=== PATIENT | female | born 1940 | race Caucasian/White ===

== ENCOUNTER 2018-11-08 07:38 | Inpatient (IN) | payer MEDICARE ==
[~2018-11-08] VITALS: Ht 162.6 cm; Wt 84.8 kg
[2018-11-08] MEDS ORDERED: methylPREDNISolone SOD SUCC PF 125 MG/2 ML VIAL. IV ONE (08:15)
[2018-11-08] MEDS ORDERED: IPRATRPIUM/ALBUTEROL 0.5/2.5MG 3 ML NEBU. NEB ONE (08:15)
--- NOTE | 2018-11-08 08:27 | PHYS DOC ---
Past Medical History Past Medical History: Diverticulosis, High Cholesterol, Hypertension, Hypothyroid Past Surgical History: Other Additional Past Surgical Histo: LEFT SHOULDER SX, CATARATS Alcohol Use: None Drug Use: None Adult General Chief Complaint Chief Complaint: ABDOMINAL PAIN HPI HPI Patient is a 78 year old female presents to the ED complaining of abdominal pain �5 days. Patient states she's had diarrhea for the last 5 days. Describes her pain as cramping. Rates her pain as 6 out of 10. States she's had multiple episodes of diarrhea each day. Associated symptoms include nausea and vomiting. States similar symptoms in the past. No recent travel. Denies fever, chest pain, shortness of breath, back pain, headache, dizziness, blood in stool or dysuria. Review of Systems Review of Systems Constitutional: Denies fever or chills [] Eyes: Denies change in visual acuity, redness, or eye pain [] HENT: Denies nasal congestion or sore throat [] Respiratory: Denies cough or shortness of breath [] Cardiovascular: No additional information not addressed in HPI [] GI: Complains of abdominal pain, nausea/vomiting and diarrhea. Denies bloody stools. : Denies dysuria or hematuria [] Musculoskeletal: Denies back pain or joint pain [] Integument: Denies rash or skin lesions [] Neurologic: Denies headache, focal weakness or sensory changes [] All other systems were reviewed and found to be within normal limits, except as documented in this note. Current Medications Current Medications Current Medications Medications (Trade) Dose Ordered Sig/[place] Start Time Stop Time Status Last Admin Dose Admin Albuterol/ Ipratropium (Duoneb) 3 ml 1X ONCE 11/08/18 08:15 11/08/18 08:30 DC Info (CONTRAST GIVEN -- Rx MONITORING) 1 each PRN DAILY PRN 11/08/18 09:00 11/10/18 08:59 Iohexol (Omnipaque 300 Mg/ml) 60 ml 1X ONCE 11/08/18 09:00 11/08/18 09:01 DC 11/08/18 09:13 60 ML Methylprednisolone Sodium Succinate (SOLU-Medrol 125MG VIAL) 125 mg 1X ONCE 11/08/18 08:15 11/08/18 08:30 DC Sodium Chloride 1,000 ml @ 1,000 mls/hr 1X ONCE 11/08/18 09:00 11/08/18 09:59 DC 11/08/18 09:15 1,000 MLS/HR Allergies Allergies Allergies Coded Allergies Type Severity Reaction Last Updated Verified No Known Drug Allergies 08/13/13 No Physical Exam Physical Exam Constitutional: Well developed, well nourished, no acute distress, non-toxic appearance. [] HENT: Normocephalic, atraumatic Neck: Normal range of motion, no tenderness, supple, no stridor. [] Cardiovascular:Heart rate regular rhythm, no murmur [] Lungs & Thorax: Bilateral breath sounds clear to auscultation [] Abdomen: Bowel sounds normal, soft, mild diffuse abdominal tenderness, no masses, no pulsatile masses. [] Skin: Warm, dry, no erythema, no rash. [] Back: No tenderness, no CVA tenderness. [] Extremities: No tenderness, no cyanosis, no clubbing, ROM intact, no edema. [] Neurologic: Alert and oriented X 3, normal motor function, normal sensory functi on, no focal deficits noted. [] Psychologic: Affect normal, judgement normal, mood normal. [] Current Patient Data Vital Signs Vital Signs Date Time Temp Pulse Resp B/P (MAP) Pulse Ox O2 Delivery O2 Flow Rate FiO2 11/08/18 07:48 97.9 97 20 118/22 (54) 97 Room Air 97.9 Lab Values Laboratory Tests Test 11/08/18 08:05 11/08/18 08:15 Urine Collection Type Void Urine Color Yellow Urine Clarity Clear Urine pH 5.5 Urine Specific [place] 1.020 Urine Protein Negative mg/dL (NEG-TRACE) Urine Glucose (UA) Negative mg/dL (NEG) Urine Ketones (Stick) Negative mg/dL (NEG) Urine Blood Negative (NEG) Urine Nitrite Negative (NEG) Urine Bilirubin Negative (NEG) Urine Urobilinogen Dipstick 0.2 mg/dL (0.2 mg/dL) Urine Leukocyte Esterase Small (NEG) Urine RBC Occ /HPF (0-2) Urine WBC 20-40 /HPF (0-4) Urine Squamous Epithelial Cells Few /LPF Urine Bacteria Mod /HPF (0-FEW) Urine Mucus Slight /LPF White Blood Count 9.1 x10^3/uL (4.0-11.0) Red Blood Count 4.19 x10^6/uL (3.50-5.40) Hemoglobin 13.5 g/dL (12.0-15.5) Hematocrit 38.7 % (36.0-47.0) Mean Corpuscular Volume 92 fL (79-100) Mean Corpuscular Hemoglobin 32 pg (25-35) Mean Corpuscular Hemoglobin Concent 35 g/dL (31-37) Red Cell Distribution Width 13.3 % (11.5-14.5) Platelet Count 186 x10^3/uL (140-400) Neutrophils (%) (Auto) 70 % (31-73) Lymphocytes (%) (Auto) 21 % (24-48) L Monocytes (%) (Auto) 6 % (0-9) Eosinophils (%) (Auto) 2 % (0-3) Basophils (%) (Auto) 1 % (0-3) Neutrophils # (Auto) 6.3 x10^3/uL (1.8-7.7) Lymphocytes # (Auto) 1.9 x10^3/uL (1.0-4.8) Monocytes # (Auto) 0.6 x10^3/uL (0.0-1.1) Eosinophils # (Auto) 0.2 x10^3/uL (0.0-0.7) Basophils # (Auto) 0.1 x10^3/uL (0.0-0.2) Sodium Level 140 mmol/L (136-145) Potassium Level 3.8 mmol/L (3.5-5.1) Chloride Level 103 mmol/L (98-107) Carbon Dioxide Level 27 mmol/L (21-32) Anion Gap 10 (6-14) Blood Urea Nitrogen 17 mg/dL (7-20) Creatinine 1.2 mg/dL (0.6-1.0) H Estimated GFR (Cockcroft-Gault) 43.2 BUN/Creatinine Ratio 14 (6-20) Glucose Level 103 mg/dL (70-99) H Calcium Level 9.3 mg/dL (8.5-10.1) Total Bilirubin 1.1 mg/dL (0.2-1.0) H Aspartate Amino Transferase (AST) 33 U/L (15-37) Alanine Aminotransferase (ALT) 25 U/L (14-59) Alkaline Phosphatase 157 U/L (46-116) H Total Protein 8.1 g/dL (6.4-8.2) Albumin 3.4 g/dL (3.4-5.0) Albumin/Globulin Ratio 0.7 (1.0-1.7) L Lipase 100 U/L (73-393) Laboratory Tests 11/08/18 08:15 Laboratory Tests 11/08/18 08:15 EKG EKG [] Radiology/Procedures Radiology/Procedures []PROCEDURE: CT ABD PELV W/ IV CONTRST ONLY Examination: CT of the abdomen pelvis with IV contrast HISTORY: History of diffuse abdominal pain COMPARISON: 08/13/2013 TECHNIQUE: Axial CT images of the abdomen pelvis were performed with IV contrast. Coronal and sagittal reformats are performed Exposure: One or more of the following individualized dose reduction techniques were utilized for this examination: 1. Automated exposure control 2. Adjustment of the mA and/or kV according to patient size 3. Use of iterative reconstruction technique FINDINGS: Minimal bibasilar lung atelectasis. No evidence of free air identified in the abdomen. The visualized liver, adrenals grossly appears unremarkable. Few calcified granulomas identified in the spleen. Small densities identified in the gallbladder likely gallstones. The visualized pancreas grossly appears unremarkable. The stomach is mildly distended. The small bowel is nondilated. Appendix is normal. Feces and gas noted in the colon. There is moderate inflammatory fat stranding identified in the sigmoid colon region with multiple sigmoid colon colon diverticulosis likely acute diverticulitis of the sigmoid colon. There is focal sigmoid colon wall thickening identified. There is a 7 mm fluid collection identified abutting the wall of the sigmoid colon at the site of diverticulitis probably an intramural abscess. Urinary bladder is mildly distended. Cystic structures identified in the left ovary with the largest measuring 1.8 cm could be a left ovarian cysts or cystic lesions. Urinary bladder is mildly distended. The bilateral kidneys enhance symmetrically. Severe aortic atherosclerosis. Moderate degenerative changes lumbar spine. There is moderate compression changes of T8, T12 vertebral bodies, age indeterminate. IMPRESSION: 1. Moderate inflammatory fat stranding identified about the sigmoid colon likely acute diverticulitis. There is focal thickening of the sigmoid colon wall could be secondary to inflammation. There is a 7 mm fluid collection identified abutting the wall of the sigmoid colon at the site of diverticulitis probably an intramural abscess. 2. Cholelithiasis. 3. Cystic structures left ovary could be left ovarian cysts or cystic lesions. Recommend nonemergent ultrasound pelvis for further evaluation. Course & Med Decision Making Course & Med Decision Making Pertinent Labs and Imaging studies reviewed. (See chart for details) []Patient well-appearing in the ED. Resting comfortably at this time. No fevers. CT shows acute diverticulitis with abscess. Discussed case with hospitalist, Dr. Sierra. Agrees to admission and further management patient. Patient stable for admission. GI and surgery consult placed. Dragon Disclaimer Dragon Disclaimer This electronic medical record was generated, in whole or in part, using a voice recognition dictation system. Departure Departure Impression: Primary Impression: Diverticulitis of intestine with abscess Disposition: ADMITTED INPATIENT Admitting Physician: YURI Condition: STABLE Referrals: FABRICE GENAO MD (PCP) JANELLE ARORA Nov 08, 2018 08:27
[2018-11-08 08:30] LABS: BASO # 0.1 x10^3/uL (0.0-0.2); BASO % 1 % (0-3); EOS # 0.2 x10^3/uL (0.0-0.7); EOS % 2 % (0-3); HEMATOCRIT 38.7 % (36.0-47.0); HEMOGLOBIN 13.5 g/dL (12.0-15.5); LYMPH # 1.9 x10^3/uL (1.0-4.8); LYMPH % 21 % (24-48); MEAN CORPUSCULAR HEMOGLOBIN 32 pg (25-35); MEAN CORPUSCULAR HGB CONC 35 g/dL (31-37); MEAN CORPUSCULAR VOLUME 92 fL (79-100); MONO # 0.6 x10^3/uL (0.0-1.1); MONO % 6 % (0-9); NEUT # 6.3 x10^3/uL (1.8-7.7); NEUT % 70 % (31-73); PLATELET COUNT 186 x10^3/uL (140-400); RED BLOOD COUNT 4.19 x10^6/uL (3.50-5.40); RED CELL DISTRIBUTION WIDTH 13.3 % (11.5-14.5); WHITE BLOOD COUNT 9.1 x10^3/uL (4.0-11.0)
[2018-11-08 08:42] LABS: CALCIUM 9.3 mg/dL (8.5-10.1); CREATININE 1.2 mg/dL (0.6-1.0); GFR 43.2; POTASSIUM 3.8 mmol/L (3.5-5.1)
[2018-11-08 08:47] LABS: ALBUMIN 3.4 g/dL (3.4-5.0); ALBUMIN/GLOBULIN RATIO 0.7 (1.0-1.7); TOTAL BILIRUBIN 1.1 mg/dL (0.2-1.0); TOTAL PROTEIN 8.1 g/dL (6.4-8.2)
[2018-11-08 08:52] LABS: BILIRUBIN,URINE NEGATIVE (NEG); CLARITY,URINE CLEAR; COLOR,URINE YELLOW; NITRITE,URINE NEGATIVE (NEG); PH,URINE 5.5; PROTEIN,URINE NEGATIVE (NEG-TRACE); UROBILINOGEN,URINE 0.2 mg/dL (0.2 mg/dL)
[2018-11-08] MEDS ORDERED: IOHEXOL 300 MG/ML 100ML VIAL. IV ONE (09:00)
[2018-11-08] MEDS ORDERED: IV NORMAL SALINE 1000ML BAG 1,000 ML IV ONE (09:00)
[2018-11-08] MEDS ORDERED: CONTRAST GIVEN. MC PRN (09:00)
[2018-11-08 09:05] LABS: SQUAMOUS EPITHELIAL CELL,UR FEW /LPF; WBC,URINE 20-40 /HPF (0-4)
[2018-11-08 09:06] LABS: BACTERIA,URINE MOD /HPF (0-FEW); RBC,URINE OCC /HPF (0-2)
--- NOTE | 2018-11-08 09:34 | RAD ---
Examination: CT of the abdomen pelvis with IV contrast HISTORY: History of diffuse abdominal pain COMPARISON: 08/13/2013 TECHNIQUE: Axial CT images of the abdomen pelvis were performed with IV contrast. Coronal and sagittal reformats are performed Exposure: One or more of the following individualized dose reduction techniques were utilized for this examination: 1. Automated exposure control 2. Adjustment of the mA and/or kV according to patient size 3. Use of iterative reconstruction technique FINDINGS: Minimal bibasilar lung atelectasis. No evidence of free air identified in the abdomen. The visualized liver, adrenals grossly appears unremarkable. Few calcified granulomas identified in the spleen. Small densities identified in the gallbladder likely gallstones. The visualized pancreas grossly appears unremarkable. The stomach is mildly distended. The small bowel is nondilated. Appendix is normal. Feces and gas noted in the colon. There is moderate inflammatory fat stranding identified in the sigmoid colon region with multiple sigmoid colon colon diverticulosis likely acute diverticulitis of the sigmoid colon. There is focal sigmoid colon wall thickening identified. There is a 7 mm fluid collection identified abutting the wall of the sigmoid colon at the site of diverticulitis probably an intramural abscess. Urinary bladder is mildly distended. Cystic structures identified in the left ovary with the largest measuring 1.8 cm could be a left ovarian cysts or cystic lesions. Urinary bladder is mildly distended. The bilateral kidneys enhance symmetrically. Severe aortic atherosclerosis. Moderate degenerative changes lumbar spine. There is moderate compression changes of T8, T12 vertebral bodies, age indeterminate. IMPRESSION: 1. Moderate inflammatory fat stranding identified about the sigmoid colon likely acute diverticulitis. There is focal thickening of the sigmoid colon wall could be secondary to inflammation. There is a 7 mm fluid collection identified abutting the wall of the sigmoid colon at the site of diverticulitis probably an intramural abscess. 2. Cholelithiasis. 3. Cystic structures left ovary could be left ovarian cysts or cystic lesions. Recommend nonemergent ultrasound pelvis for further evaluation. Electronically signed by: Darrin Saldana MD (11/08/2018 9:31 AM) [email or web address]
--- NOTE | 2018-11-08 09:44 | EKG ---
[facility] [address] [place] [address] Test Date: 2018-11-08 Test Time: 08:28:38 Pat Name: VIRA NAVAS Department: Room: Gender: F Warp Clamper: : 1940 Requested By: JANELLE ARORA Order Number: [id number] Reading MD: Measurements Intervals [place] Rate: 77 P: 62 IA: 142 QRS: 6 QRSD: 88 T: 31 QT: 360 QTc: 409 Interpretive Statements SINUS RHYTHM QRS(T) CONTOUR ABNORMALITY CONSIDER INFERIOR MYOCARDIAL DAMAGE POSSIBLY ABNORMAL ECG No previous ECG available for comparison
[2018-11-08] MEDS ORDERED: PIPERACILLIN/TAZOBACTAM 3.375 GM in IV NORMAL SALINE 50ML 50 ML IV ONE (10:15)
[2018-11-08] MEDS ORDERED: ONDANSETRON PF 4 MG/2 ML VIAL. IV PRN (10:15)
[2018-11-08] MEDS ORDERED: fentaNYL PF VIAL 100 MCG/2 ML VIAL IV PRN (10:15)
[2018-11-08] MEDS ORDERED: ACETAMINOPHEN 325 MG TABLET. PO PRN ×2 (10:15→14:00)
--- NOTE | 2018-11-08 10:48 | PDOC1 ---
History and Physical Date of Admission Date of Admission DATE: 11/08/18 TIME: 10:47 Identification/Chief Complaint Chief Complaint SEEN IN ER , 78 year old female presents to the ED complaining of abdominal pain �5 days. Patient states she's had diarrhea for the last 5 days. Describes her pain as cramping. Rates her pain as 6 out of 10. States she's had multiple episodes of diarrhea each day. Associated symptoms include nausea and vomiting. States similar symptoms in the past. No recent travel. Denies fever, chest pain, shortness of breath, back pain, headache, dizziness, blood in stool or dysuria. Past Medical History Past Medical History Past Medical History Past Medical History: Diverticulosis, High Cholesterol, Hypertension, Hypothyroid Past Surgical History: Other Additional Past Surgical Histo: LEFT SHOULDER SX, CATARATS Alcohol Use: None Drug Use: None family hx htn Cardiovascular: HTN GI: Constipation Family History Family History: Hypertension Social History Smoke: No ALCOHOL: none Drugs: None Current Problem List Problem List Problems Medical Problems: (1) Diverticulitis of intestine with abscess Status: Acute Current Medications Current Medications Current Medications Albuterol/ Ipratropium (Duoneb) 3 ml 1X ONCE NEB ; Start 11/08/18 at 08:15; Stop 11/08/18 at 08:30; Status DC Methylprednisolone Sodium Succinate (SOLU-Medrol 125MG VIAL) 125 mg 1X ONCE IV ; Start 11/08/18 at 08:15; Stop 11/08/18 at 08:30; Status DC Iohexol (Omnipaque 300 Mg/ml) 60 ml 1X ONCE IV Last administered on 11/08/18at 09:13; Start 11/08/18 at 09:00; Stop 11/08/18 at 09:01; Status DC Info (CONTRAST GIVEN -- Rx MONITORING) 1 each PRN DAILY PRN MC SEE COMMENTS; Start 11/08/18 at 09:00; Stop 11/10/18 at 08:59 Sodium Chloride 1,000 ml @ 1,000 mls/hr 1X ONCE IV Last administered on 11/08/18at 09:15; Start 11/08/18 at 09:00; Stop 11/08/18 at 09:59; Status DC Ondansetron HCl (Zofran) 4 mg PRN Q8HRS PRN IV NAUSEA/VOMITING; Start 11/08/18 at 10:15; Stop 11/09/18 at 10:14 Fentanyl Citrate (Fentanyl 2ml Vial) 50 mcg PRN Q1HR PRN IV PAIN; Start 11/08/18 at 10:15; Stop 11/09/18 at 10:14 Acetaminophen (Tylenol) 650 mg PRN Q4HRS PRN PO FEVER; Start 11/08/18 at 10:15; Stop 11/09/18 at 10:14 Piperacillin Sod/ Tazobactam Sod 3.375 gm/Sodium Chloride 50 ml @ 100 mls/hr 1X ONCE IV ; Start 11/08/18 at 10:15; Stop 11/08/18 at 10:44; Status DC Allergies Allergies: Coded Allergies: No Known Drug Allergies (Unverified , 08/13/13) ROS Review of System Review of Systems Review of Systems Constitutional: Denies fever or chills [] Eyes: Denies change in visual acuity, redness, or eye pain [] HENT: Denies nasal congestion or sore throat [] Respiratory: Denies cough or shortness of breath [] Cardiovascular: No additional information not addressed in HPI [] GI: Complains of LLQ abdominal pain, nausea/vomiting and diarrhea. Denies bloody stools. : Denies dysuria or hematuria [] Musculoskeletal: Denies back pain or joint pain [] Integument: Denies rash or skin lesions [] Neurologic: Denies headache, focal weakness or sensory changes [] 14 PT systems were reviewed and found to be within normal limits, except as documented General: YES: Fatigue Respiratory: No: Cough, Hemoptysis, Orthopnea, Pleuritic Pain, Shortness of breath, SOB with excertion, Sputum Changes, Stridor, Tachypnea, Wheezing, Other Cardiovascular: No Chest Pain, No Palpitations, No Orthopnea, No Paroxysmal Noc. Dyspnea, No Edema, No Lt Headedness, No Other Musculoskeletal: Yes Joint Stiffness Skin: Yes Dry Skin Physical Exam Physical Exam Physical Exam Physical Exam Constitutional: Well developed, well nourished, MILD acute distress, non-toxic appearance. [] HENT: Normocephalic, atraumatic Neck: Normal range of motion, no tenderness, supple, no stridor. [] Cardiovascular:Heart rate regular rhythm, no murmur [] Lungs & Thorax: Bilateral breath sounds clear to auscultation [] Abdomen: Bowel sounds normal, soft, mild diffuse abdominal tenderness, no masses, no pulsatile masses. [] Skin: Warm, dry, no erythema, no rash. [] Back: No tenderness, no CVA tenderness. [] Extremities: No tenderness, no cyanosis, no clubbing, ROM intact, no edema. [] Neurologic: Alert and oriented X 3, normal motor function, normal sensory function, no focal deficits noted. [] Psychologic: Affect normal, judgement normal, mood normal. [] General: Alert, Oriented X3, Cooperative, mild distress Lungs: Clear to auscultation, Normal air movement Heart: no gallops Breasts: Not examined Abdomen: No hepatosplenomegaly PELVIC: Examination not indicated Extremities: No cyanosis Neuro: Normal speech, Strength at 5/5 X4 ext, Cranial nerves 3-12 NL Psych/Mental Status: Mental status NL, Mood NL Vitals Vitals Vital Signs Date Time Temp Pulse Resp B/P (MAP) Pulse Ox O2 Delivery O2 Flow Rate FiO2 11/08/18 07:48 97.9 97 20 118/22 (54) 97 Room Air 97.9 Labs Labs Laboratory Tests Test 11/08/18 08:05 11/08/18 08:15 Urine Collection Type Void Urine Color Yellow Urine Clarity Clear Urine pH 5.5 Urine Specific [place] 1.020 Urine Protein Negative mg/dL (NEG-TRACE) Urine Glucose (UA) Negative mg/dL (NEG) Urine Ketones (Stick) Negative mg/dL (NEG) Urine Blood Negative (NEG) Urine Nitrite Negative (NEG) Urine Bilirubin Negative (NEG) Urine Urobilinogen Dipstick 0.2 mg/dL (0.2 mg/dL) Urine Leukocyte Esterase Small (NEG) Urine RBC Occ /HPF (0-2) Urine WBC 20-40 /HPF (0-4) Urine Squamous Epithelial Cells Few /LPF Urine Bacteria Mod /HPF (0-FEW) Urine Mucus Slight /LPF White Blood Count 9.1 x10^3/uL (4.0-11.0) Red Blood Count 4.19 x10^6/uL (3.50-5.40) Hemoglobin 13.5 g/dL (12.0-15.5) Hematocrit 38.7 % (36.0-47.0) Mean Corpuscular Volume 92 fL (79-100) Mean Corpuscular Hemoglobin 32 pg (25-35) Mean Corpuscular Hemoglobin Concent 35 g/dL (31-37) Red Cell Distribution Width 13.3 % (11.5-14.5) Platelet Count 186 x10^3/uL (140-400) Neutrophils (%) (Auto) 70 % (31-73) Lymphocytes (%) (Auto) 21 % (24-48) Monocytes (%) (Auto) 6 % (0-9) Eosinophils (%) (Auto) 2 % (0-3) Basophils (%) (Auto) 1 % (0-3) Neutrophils # (Auto) 6.3 x10^3/uL (1.8-7.7) Lymphocytes # (Auto) 1.9 x10^3/uL (1.0-4.8) Monocytes # (Auto) 0.6 x10^3/uL (0.0-1.1) Eosinophils # (Auto) 0.2 x10^3/uL (0.0-0.7) Basophils # (Auto) 0.1 x10^3/uL (0.0-0.2) Sodium Level 140 mmol/L (136-145) Potassium Level 3.8 mmol/L (3.5-5.1) Chloride Level 103 mmol/L (98-107) Carbon Dioxide Level 27 mmol/L (21-32) Anion Gap 10 (6-14) Blood Urea Nitrogen 17 mg/dL (7-20) Creatinine 1.2 mg/dL (0.6-1.0) Estimated GFR (Cockcroft-Gault) 43.2 BUN/Creatinine Ratio 14 (6-20) Glucose Level 103 mg/dL (70-99) Calcium Level 9.3 mg/dL (8.5-10.1) Total Bilirubin 1.1 mg/dL (0.2-1.0) Aspartate Amino Transf (AST/SGOT) 33 U/L (15-37) Alanine Aminotransferase (ALT/SGPT) 25 U/L (14-59) Alkaline Phosphatase 157 U/L (46-116) Total Protein 8.1 g/dL (6.4-8.2) Albumin 3.4 g/dL (3.4-5.0) Albumin/Globulin Ratio 0.7 (1.0-1.7) Lipase 100 U/L (73-393) Laboratory Tests Test 11/08/18 08:05 11/08/18 08:15 Urine Collection Type Void Urine Color Yellow Urine Clarity Clear Urine pH 5.5 Urine Specific [place] 1.020 Urine Protein Negative mg/dL (NEG-TRACE) Urine Glucose (UA) Negative mg/dL (NEG) Urine Ketones (Stick) Negative mg/dL (NEG) Urine Blood Negative (NEG) Urine Nitrite Negative (NEG) Urine Bilirubin Negative (NEG) Urine Urobilinogen Dipstick 0.2 mg/dL (0.2 mg/dL) Urine Leukocyte Esterase Small (NEG) Urine RBC Occ /HPF (0-2) Urine WBC 20-40 /HPF (0-4) Urine Squamous Epithelial Cells Few /LPF Urine Bacteria Mod /HPF (0-FEW) Urine Mucus Slight /LPF White Blood Count 9.1 x10^3/uL (4.0-11.0) Red Blood Count 4.19 x10^6/uL (3.50-5.40) Hemoglobin 13.5 g/dL (12.0-15.5) Hematocrit 38.7 % (36.0-47.0) Mean Corpuscular Volume 92 fL (79-100) Mean Corpuscular Hemoglobin 32 pg (25-35) Mean Corpuscular Hemoglobin Concent 35 g/dL (31-37) Red Cell Distribution Width 13.3 % (11.5-14.5) Platelet Count 186 x10^3/uL (140-400) Neutrophils (%) (Auto) 70 % (31-73) Lymphocytes (%) (Auto) 21 % (24-48) Monocytes (%) (Auto) 6 % (0-9) Eosinophils (%) (Auto) 2 % (0-3) Basophils (%) (Auto) 1 % (0-3) Neutrophils # (Auto) 6.3 x10^3/uL (1.8-7.7) Lymphocytes # (Auto) 1.9 x10^3/uL (1.0-4.8) Monocytes # (Auto) 0.6 x10^3/uL (0.0-1.1) Eosinophils # (Auto) 0.2 x10^3/uL (0.0-0.7) Basophils # (Auto) 0.1 x10^3/uL (0.0-0.2) Sodium Level 140 mmol/L (136-145) Potassium Level 3.8 mmol/L (3.5-5.1) Chloride Level 103 mmol/L (98-107) Carbon Dioxide Level 27 mmol/L (21-32) Anion Gap 10 (6-14) Blood Urea Nitrogen 17 mg/dL (7-20) Creatinine 1.2 mg/dL (0.6-1.0) Estimated GFR (Cockcroft-Gault) 43.2 BUN/Creatinine Ratio 14 (6-20) Glucose Level 103 mg/dL (70-99) Calcium Level 9.3 mg/dL (8.5-10.1) Total Bilirubin 1.1 mg/dL (0.2-1.0) Aspartate Amino Transf (AST/SGOT) 33 U/L (15-37) Alanine Aminotransferase (ALT/SGPT) 25 U/L (14-59) Alkaline Phosphatase 157 U/L (46-116) Total Protein 8.1 g/dL (6.4-8.2) Albumin 3.4 g/dL (3.4-5.0) Albumin/Globulin Ratio 0.7 (1.0-1.7) Lipase 100 U/L (73-393) Images Images COMPARISON: 08/13/2013 TECHNIQUE: Axial CT images of the abdomen pelvis were performed with IV contrast. Coronal and sagittal reformats are performed Exposure: One or more of the following individualized dose reduction techniques were utilized for this examination: 1. Automated exposure control 2. Adjustment of the mA and/or kV according to patient size 3. Use of iterative reconstruction technique FINDINGS: Minimal bibasilar lung atelectasis. No evidence of free air identified in the abdomen. The visualized liver, adrenals grossly appears unremarkable. Few calcified granulomas identified in the spleen. Small densities identified in the gallbladder likely gallstones. The visualized pancreas grossly appears unremarkable. The stomach is mildly distended. The small bowel is nondilated. Appendix is normal. Feces and gas noted in the colon. There is moderate inflammatory fat stranding identified in the sigmoid colon region with multiple sigmoid colon colon diverticulosis likely acute diverticulitis of the sigmoid colon. There is focal sigmoid colon wall thickening identified. There is a 7 mm fluid collection identified abutting the wall of the sigmoid colon at the site of diverticulitis probably an intramural abscess. Urinary bladder is mildly distended. Cystic structures identified in the left ovary with the largest measuring 1.8 cm could be a left ovarian cysts or cystic lesions. Urinary bladder is mildly distended. The bilateral kidneys enhance symmetrically. Severe aortic atherosclerosis. Moderate degenerative changes lumbar spine. There is moderate compression changes of T8, T12 vertebral bodies, age indeterminate. IMPRESSION: 1. Moderate inflammatory fat stranding identified about the sigmoid colon likely acute diverticulitis. There is focal thickening of the sigmoid colon wall could be secondary to inflammation. There is a 7 mm fluid collection identified abutting the wall of the sigmoid colon at the site of diverticulitis probably an intramural abscess. 2. Cholelithiasis. 3. Cystic structures left ovary could be left ovarian cysts or cystic lesions. Recommend nonemergent ultrasound pelvis for further evaluation. Electronically signed by: Darrin Saldana MD (11/08/2018 9:31 AM) [id number] DICTATED and SIGNED BY: DARRIN SALDANA MD DATE: 11/08/18 0931 VTE Prophylaxis Ordered VTE Prophylaxis Devices: Yes VTE Pharmacological Prophylaxi: Yes Assessment/Plan Assessment/Plan IMPRESSION: 1. Moderate inflammatory fat stranding identified about the sigmoid colon likely acute diverticulitis. There is focal thickening of the sigmoid colon wall could be secondary to inflammation. There is a 7 mm fluid collection identified abutting the wall of the sigmoid colon at the site of diverticulitis probably an intramural abscess. 2. Cholelithiasis. 3. Cystic structures left ovary could be left ovarian cysts or cystic lesions. Recommend nonemergent ultrasound pelvis for further evaluation. 4. OBESITY 5. POSSIBLE UTI PLAN IV ANTIBIOTICS GI CONSULT NPO GEN SURG CONSULT IV FLUID SUPPORT 63 MIN PT EXAM, CHART REVIEW, > 50% OF TIME SPENT WITH EXAM, CHART REVIEW, PT CARE COORDINATION LEONARD MORRIS MD Nov 08, 2018 10:48
--- NOTE | 2018-11-08 12:26 | PDOC2 ---
CARMEN ASCENCIO [employer] 11/08/18 1226: CONSULT Date of Consult Date of Consult DATE: 11/08/18 TIME: 12:21 Reason for Consult Reason for Consult: diverticulitis Referring Physician Referring Physician: ER Identification/Chief Complaint Chief Complaint abdominal pain Source Source: Chart review, Patient History of Present Illness Reason for Visit: LLQ pain and cramps started on Wednesday. This occurred in 2006, she was treated with antibiotics. Reports did have a colonoscopy once resolved, no acute findings per pt. She did have diarrhea Wednesday and Wednesday, no blood in stool. Yesterday took an Imodium and no diarrhea since. Associated nausea and emesis Past Medical History Cardiovascular: HTN, Hyperlipidemia Endocrine: Hypothyroidism Past Surgical History Past Surgical History: No pertinent history Family History Family History: Other (noncontributory to current illness ) Social History No ALCOHOL: rare Drugs: None Lives: with Family Current Problem List Problem List Problems Medical Problems: (1) Diverticulitis of intestine with abscess Status: Acute Current Medications Current Medications Current Medications Albuterol/ Ipratropium (Duoneb) 3 ml 1X ONCE NEB ; Start 11/08/18 at 08:15; Stop 11/08/18 at 08:30; Status DC Methylprednisolone Sodium Succinate (SOLU-Medrol 125MG VIAL) 125 mg 1X ONCE IV ; Start 11/08/18 at 08:15; Stop 11/08/18 at 08:30; Status DC Iohexol (Omnipaque 300 Mg/ml) 60 ml 1X ONCE IV Last administered on 11/08/18at 09:13; Start 11/08/18 at 09:00; Stop 11/08/18 at 09:01; Status DC Info (CONTRAST GIVEN -- Rx MONITORING) 1 each PRN DAILY PRN MC SEE COMMENTS; Start 11/08/18 at 09:00; Stop 11/10/18 at 08:59 Sodium Chloride 1,000 ml @ 1,000 mls/hr 1X ONCE IV Last administered on 11/08/18at 09:15; Start 11/08/18 at 09:00; Stop 11/08/18 at 09:59; Status DC Ondansetron HCl (Zofran) 4 mg PRN Q8HRS PRN IV NAUSEA/VOMITING; Start 11/08/18 at 10:15; Stop 11/09/18 at 10:14 Fentanyl Citrate (Fentanyl 2ml Vial) 50 mcg PRN Q1HR PRN IV PAIN; Start 11/08/18 at 10:15; Stop 11/09/18 at 10:14 Acetaminophen (Tylenol) 650 mg PRN Q4HRS PRN PO FEVER; Start 11/08/18 at 10:15; Stop 11/09/18 at 10:14 Piperacillin Sod/ Tazobactam Sod 3.375 gm/Sodium Chloride 50 ml @ 100 mls/hr 1X ONCE IV Last administered on 11/08/18at 10:53; Start 11/08/18 at 10:15; Stop 11/08/18 at 10:44; Status DC Allergies Allergies: Coded Allergies: No Known Drug Allergies (Unverified , 08/13/13) ROS General: No: Chills, Other (fevers) PSYCHOLOGICAL ROS: No: Anxiety, Depression Eyes: No Blurry vision, No Double vision HEENT: No: Heacaches, Sore Throat Hematological and Lymphatic: No: Bleeding Problems, Blood Clots Respiratory: No: Cough, Shortness of breath Cardiovascular: No Chest Pain, No Palpitations Gastrointestinal: Yes Other (see hpi) Genitourinary: No Dysuria, No Hematuria Musculoskeletal: No Joint Pain, No Muscle Pain Neurological: No Confusion, No Impaired Coord/balance Skin: No Pruritus, No Rash Physical Exam General: Alert, Oriented X3, Cooperative, No acute distress HEENT: PERRLA, Mucous membr. moist/pink Lungs: Clear to auscultation, Normal air movement Heart: Regular rate, Normal S1, Normal S2, No murmurs Abdomen: Soft, Other (ND, mild TTP LLQ, no guarding ) Extremities: No clubbing, No cyanosis Skin: No rashes, No breakdown Neuro: Normal gait, Normal speech Psych/Mental Status: Mental status NL, Mood NL MUSCULOSKELETAL: No deformity, No swelling Vitals VITALS Vital Signs Date Time Temp Pulse Resp B/P (MAP) Pulse Ox O2 Delivery O2 Flow Rate FiO2 11/08/18 11:09 76 18 138/64 (88) 90 Room Air 11/08/18 07:48 97.9 97.9 Labs Labs Laboratory Tests Test 11/08/18 08:05 11/08/18 08:15 Urine Collection Type Void Urine Color Yellow Urine Clarity Clear Urine pH 5.5 Urine Specific [place] 1.020 Urine Protein Negative mg/dL (NEG-TRACE) Urine Glucose (UA) Negative mg/dL (NEG) Urine Ketones (Stick) Negative mg/dL (NEG) Urine Blood Negative (NEG) Urine Nitrite Negative (NEG) Urine Bilirubin Negative (NEG) Urine Urobilinogen Dipstick 0.2 mg/dL (0.2 mg/dL) Urine Leukocyte Esterase Small (NEG) Urine RBC Occ /HPF (0-2) Urine WBC 20-40 /HPF (0-4) Urine Squamous Epithelial Cells Few /LPF Urine Bacteria Mod /HPF (0-FEW) Urine Mucus Slight /LPF White Blood Count 9.1 x10^3/uL (4.0-11.0) Red Blood Count 4.19 x10^6/uL (3.50-5.40) Hemoglobin 13.5 g/dL (12.0-15.5) Hematocrit 38.7 % (36.0-47.0) Mean Corpuscular Volume 92 fL (79-100) Mean Corpuscular Hemoglobin 32 pg (25-35) Mean Corpuscular Hemoglobin Concent 35 g/dL (31-37) Red Cell Distribution Width 13.3 % (11.5-14.5) Platelet Count 186 x10^3/uL (140-400) Neutrophils (%) (Auto) 70 % (31-73) Lymphocytes (%) (Auto) 21 % (24-48) Monocytes (%) (Auto) 6 % (0-9) Eosinophils (%) (Auto) 2 % (0-3) Basophils (%) (Auto) 1 % (0-3) Neutrophils # (Auto) 6.3 x10^3/uL (1.8-7.7) Lymphocytes # (Auto) 1.9 x10^3/uL (1.0-4.8) Monocytes # (Auto) 0.6 x10^3/uL (0.0-1.1) Eosinophils # (Auto) 0.2 x10^3/uL (0.0-0.7) Basophils # (Auto) 0.1 x10^3/uL (0.0-0.2) Sodium Level 140 mmol/L (136-145) Potassium Level 3.8 mmol/L (3.5-5.1) Chloride Level 103 mmol/L (98-107) Carbon Dioxide Level 27 mmol/L (21-32) Anion Gap 10 (6-14) Blood Urea Nitrogen 17 mg/dL (7-20) Creatinine 1.2 mg/dL (0.6-1.0) Estimated GFR (Cockcroft-Gault) 43.2 BUN/Creatinine Ratio 14 (6-20) Glucose Level 103 mg/dL (70-99) Calcium Level 9.3 mg/dL (8.5-10.1) Total Bilirubin 1.1 mg/dL (0.2-1.0) Aspartate Amino Transf (AST/SGOT) 33 U/L (15-37) Alanine Aminotransferase (ALT/SGPT) 25 U/L (14-59) Alkaline Phosphatase 157 U/L (46-116) Total Protein 8.1 g/dL (6.4-8.2) Albumin 3.4 g/dL (3.4-5.0) Albumin/Globulin Ratio 0.7 (1.0-1.7) Lipase 100 U/L (73-393) Laboratory Tests Test 11/08/18 08:05 11/08/18 08:15 Urine Collection Type Void Urine Color Yellow Urine Clarity Clear Urine pH 5.5 Urine Specific [place] 1.020 Urine Protein Negative mg/dL (NEG-TRACE) Urine Glucose (UA) Negative mg/dL (NEG) Urine Ketones (Stick) Negative mg/dL (NEG) Urine Blood Negative (NEG) Urine Nitrite Negative (NEG) Urine Bilirubin Negative (NEG) Urine Urobilinogen Dipstick 0.2 mg/dL (0.2 mg/dL) Urine Leukocyte Esterase Small (NEG) Urine RBC Occ /HPF (0-2) Urine WBC 20-40 /HPF (0-4) Urine Squamous Epithelial Cells Few /LPF Urine Bacteria Mod /HPF (0-FEW) Urine Mucus Slight /LPF White Blood Count 9.1 x10^3/uL (4.0-11.0) Red Blood Count 4.19 x10^6/uL (3.50-5.40) Hemoglobin 13.5 g/dL (12.0-15.5) Hematocrit 38.7 % (36.0-47.0) Mean Corpuscular Volume 92 fL (79-100) Mean Corpuscular Hemoglobin 32 pg (25-35) Mean Corpuscular Hemoglobin Concent 35 g/dL (31-37) Red Cell Distribution Width 13.3 % (11.5-14.5) Platelet Count 186 x10^3/uL (140-400) Neutrophils (%) (Auto) 70 % (31-73) Lymphocytes (%) (Auto) 21 % (24-48) Monocytes (%) (Auto) 6 % (0-9) Eosinophils (%) (Auto) 2 % (0-3) Basophils (%) (Auto) 1 % (0-3) Neutrophils # (Auto) 6.3 x10^3/uL (1.8-7.7) Lymphocytes # (Auto) 1.9 x10^3/uL (1.0-4.8) Monocytes # (Auto) 0.6 x10^3/uL (0.0-1.1) Eosinophils # (Auto) 0.2 x10^3/uL (0.0-0.7) Basophils # (Auto) 0.1 x10^3/uL (0.0-0.2) Sodium Level 140 mmol/L (136-145) Potassium Level 3.8 mmol/L (3.5-5.1) Chloride Level 103 mmol/L (98-107) Carbon Dioxide Level 27 mmol/L (21-32) Anion Gap 10 (6-14) Blood Urea Nitrogen 17 mg/dL (7-20) Creatinine 1.2 mg/dL (0.6-1.0) Estimated GFR (Cockcroft-Gault) 43.2 BUN/Creatinine Ratio 14 (6-20) Glucose Level 103 mg/dL (70-99) Calcium Level 9.3 mg/dL (8.5-10.1) Total Bilirubin 1.1 mg/dL (0.2-1.0) Aspartate Amino Transf (AST/SGOT) 33 U/L (15-37) Alanine Aminotransferase (ALT/SGPT) 25 U/L (14-59) Alkaline Phosphatase 157 U/L (46-116) Total Protein 8.1 g/dL (6.4-8.2) Albumin 3.4 g/dL (3.4-5.0) Albumin/Globulin Ratio 0.7 (1.0-1.7) Lipase 100 U/L (73-393) Assessment/Plan Assessment/Plan diverticulitis with intramural abscess continue abx, bowel rest, hydration(IV), serial labs/exams ANUP GILLESPIE MD 11/08/18 2713: CONSULT Assessment/Plan Assessment/Plan Pt seen and examined. Agree with MsAsuncion Ascencio's note Pt with crampy LLQ abd pain, improved since admission. agree with abx and bowel rest. Hopefully will not required surgical intervention. Thanks for consult! CARMEN ASCENCIO APRN Nov 08, 2018 12:26 ANUP GILLESPIE MD Nov 08, 2018 18:47
--- NOTE | 2018-11-08 13:14 | PDOC2 ---
GI CONSULT Reason For Consult: Diverticulitis w/ abscess HPI: HPI: 78 y/o female admitted through ER. Intermittent cramping pain across lower abd since Wednesday associated w/ intermittent diarrhea since Wednesday. Imodium x 1 helped. H/o diverticulitis in 2006 requiring hospitalization and IV atbx. On CT in ER, sigmoid inflammation w/ 7mm fluid colection abutting wall of sigmoid colon. Was given Zosyn in ER, surgery following. No heartburn/reflux, dysphagia, n/v, chronic abd pain, constipation, hematochezia, or melena. Has lost weight intentionally - fluctuates. Not uncommon for her to have diarrhea. No previous EGD. Has had three colonoscopies - one in [place] and two in [place] - can't remember where but thinks last was >10 years ago. Cholelithiasis noted on CT. No liver, pancreas, or PUD history. Ibuprofen PRN for headaches. PMH: PMH: HTN, HLD, hypothyroidism, diverticulitis left shoulder surgery, cataracts Social History: Smoke: No ALCOHOL: rare Drugs: None ROS: GEN: Denies fevers, chills, sweats HEENT: Denies blurred vision, sore throat CV: Denies chest pain RESP: Denies shortness of air, cough GI: Per HPI : Denies hematuria, dysuria ENDO: +fluctuating weight NEURO: Denies confusion, dizziness MSK: Denies weakness, joint pain/swelling SKIN: Denies jaundice, pruritus Vitals: Vitals: Vital Signs Date Time Temp Pulse Resp B/P (MAP) Pulse Ox O2 Delivery O2 Flow Rate FiO2 11/08/18 11:09 76 18 138/64 (88) 90 Room Air 11/08/18 07:48 97.9 97.9 Labs: Labs: Laboratory Tests Test 11/08/18 08:05 11/08/18 08:15 Urine Collection Type Void Urine Color Yellow Urine Clarity Clear Urine pH 5.5 Urine Specific [place] 1.020 Urine Protein Negative mg/dL (NEG-TRACE) Urine Glucose (UA) Negative mg/dL (NEG) Urine Ketones (Stick) Negative mg/dL (NEG) Urine Blood Negative (NEG) Urine Nitrite Negative (NEG) Urine Bilirubin Negative (NEG) Urine Urobilinogen Dipstick 0.2 mg/dL (0.2 mg/dL) Urine Leukocyte Esterase Small (NEG) Urine RBC Occ /HPF (0-2) Urine WBC 20-40 /HPF (0-4) Urine Squamous Epithelial Cells Few /LPF Urine Bacteria Mod /HPF (0-FEW) Urine Mucus Slight /LPF White Blood Count 9.1 x10^3/uL (4.0-11.0) Red Blood Count 4.19 x10^6/uL (3.50-5.40) Hemoglobin 13.5 g/dL (12.0-15.5) Hematocrit 38.7 % (36.0-47.0) Mean Corpuscular Volume 92 fL (79-100) Mean Corpuscular Hemoglobin 32 pg (25-35) Mean Corpuscular Hemoglobin Concent 35 g/dL (31-37) Red Cell Distribution Width 13.3 % (11.5-14.5) Platelet Count 186 x10^3/uL (140-400) Neutrophils (%) (Auto) 70 % (31-73) Lymphocytes (%) (Auto) 21 % (24-48) Monocytes (%) (Auto) 6 % (0-9) Eosinophils (%) (Auto) 2 % (0-3) Basophils (%) (Auto) 1 % (0-3) Neutrophils # (Auto) 6.3 x10^3/uL (1.8-7.7) Lymphocytes # (Auto) 1.9 x10^3/uL (1.0-4.8) Monocytes # (Auto) 0.6 x10^3/uL (0.0-1.1) Eosinophils # (Auto) 0.2 x10^3/uL (0.0-0.7) Basophils # (Auto) 0.1 x10^3/uL (0.0-0.2) Sodium Level 140 mmol/L (136-145) Potassium Level 3.8 mmol/L (3.5-5.1) Chloride Level 103 mmol/L (98-107) Carbon Dioxide Level 27 mmol/L (21-32) Anion Gap 10 (6-14) Blood Urea Nitrogen 17 mg/dL (7-20) Creatinine 1.2 mg/dL (0.6-1.0) Estimated GFR (Cockcroft-Gault) 43.2 BUN/Creatinine Ratio 14 (6-20) Glucose Level 103 mg/dL (70-99) Calcium Level 9.3 mg/dL (8.5-10.1) Total Bilirubin 1.1 mg/dL (0.2-1.0) Aspartate Amino Transf (AST/SGOT) 33 U/L (15-37) Alanine Aminotransferase (ALT/SGPT) 25 U/L (14-59) Alkaline Phosphatase 157 U/L (46-116) Total Protein 8.1 g/dL (6.4-8.2) Albumin 3.4 g/dL (3.4-5.0) Albumin/Globulin Ratio 0.7 (1.0-1.7) Lipase 100 U/L (73-393) Allergies: Coded Allergies: No Known Drug Allergies (Unverified , 08/13/13) Medications: Current Medications Medications (Trade) Dose Ordered Sig/[place] Route PRN Reason Start Time Stop Time Status Last Admin Dose Admin Iohexol (Omnipaque 300 Mg/ml) 60 ml 1X ONCE IV 11/08/18 09:00 11/08/18 09:01 DC 11/08/18 09:13 Sodium Chloride 1,000 ml @ 1,000 mls/hr 1X ONCE IV 11/08/18 09:00 11/08/18 09:59 DC 11/08/18 09:15 Piperacillin Sod/ Tazobactam Sod 3.375 gm/Sodium Chloride 50 ml @ 100 mls/hr 1X ONCE IV 11/08/18 10:15 11/08/18 10:44 DC 11/08/18 10:53 Imaging: Imaging: CT A/P IMPRESSION: 1. Moderate inflammatory fat stranding identified about the sigmoid colon likely acute diverticulitis. There is focal thickening of the sigmoid colon wall could be secondary to inflammation. There is a 7 mm fluid collection identified abutting the wall of the sigmoid colon at the site of diverticulitis probably an intramural abscess. 2. Cholelithiasis. 3. Cystic structures left ovary could be left ovarian cysts or cystic lesions. Recommend nonemergent ultrasound pelvis for further evaluation. PE: GEN: NAD HEENT: Atraumatic, PERRL LUNGS: CTAB HEART: RRR ABD: NABS, S/ND, LLQ tenderness EXTREMITY: No edema SKIN: No rashes, no jaundice NEURO/PSYCH: A & O �3 A/P: A/P: Lower abd pain, diarrhea, h/o diverticulitis Abnormal CT - sigmoid diverticulitis w/ intramural abscess CRC screen - three colonoscopies in her lifetime, last >10 years ago Cholelithiasis - noted on CT -- Surgery following - plans for bowel rest and antibiotics. IVF and pain control per Dr. Sierra. SAEED LOWE Nov 08, 2018 13:13
[2018-11-08] MEDS: IV NORMAL SALINE 1000ML BAG 1,000 ML IV SCH ×2 (13:50→23:50)
[2018-11-08] MEDS ORDERED: LORazepam 0.5 MG TABLET PO PRN (14:00)
[2018-11-08] MEDS ORDERED: ALBUTEROL SULFATE 2.5 MG/3 ML NEBU. NEB PRN (14:00)
[2018-11-08] MEDS: PIPERACILLIN/TAZOBACTAM 3.375 GM in IV NORMAL SALINE 50ML 50 ML IV SCH (14:00)
[2018-11-08] MEDS ORDERED: 0.9 % SODIUM CHLORIDE 10 ML DISP.SYRIN. IV PRN (14:00)
[2018-11-08] MEDS ORDERED: MAG HYDROX/ALUMINUM HYD/SIMETH 30 ML ORAL.SUSP PO PRN (14:00)
[2018-11-08] MEDS ORDERED: DOCUSATE SODIUM 100 MG CAPSULE. PO PRN (14:00)
[2018-11-08] MEDS ORDERED: cloNIDine HCL 0.1 MG TABLET PO PRN (14:00)
[2018-11-08] MEDS ORDERED: HYDROmorphone 2 MG/ML VIAL IV PRN (14:00)
[2018-11-08 15:00] VITALS: BP 117/52
[2018-11-08 19:00] VITALS: BP 127/54
[2018-11-08] MEDS ORDERED: ATOR40TA59 PO (20:16)
[2018-11-08] MEDS ORDERED: LEVO75TA5 PO (20:16)
[2018-11-08] MEDS ORDERED: LISI10TA2 PO (20:16)
[2018-11-08] MEDS ORDERED: TEMAZEPAM 7.5 MG CAPSULE PO PRN (20:45)
[2018-11-08] MEDS: ATORVASTATIN CALCIUM 40 MG TABLET. PO SCH (21:15)
[2018-11-08 23:00] VITALS: BP 131/62
[2018-11-09] MEDS: PIPERACILLIN/TAZOBACTAM 3.375 GM in IV NORMAL SALINE 50ML 50 ML IV SCH ×5 (00:10→23:55)
[2018-11-09 03:00] VITALS: BP 135/71
[2018-11-09 05:12] LABS: BASO % 1 % (0-3); EOS # 0.2 x10^3/uL (0.0-0.7); EOS % 4 % (0-3); HEMATOCRIT 32.8 % (36.0-47.0); HEMOGLOBIN 11.3 g/dL (12.0-15.5); LYMPH # 1.7 x10^3/uL (1.0-4.8); LYMPH % 27 % (24-48); MEAN CORPUSCULAR HEMOGLOBIN 32 pg (25-35); MEAN CORPUSCULAR HGB CONC 35 g/dL (31-37); MEAN CORPUSCULAR VOLUME 93 fL (79-100); MONO # 0.4 x10^3/uL (0.0-1.1); MONO % 6 % (0-9); NEUT # 3.9 x10^3/uL (1.8-7.7); NEUT % 63 % (31-73); PLATELET COUNT 150 x10^3/uL (140-400); RED BLOOD COUNT 3.53 x10^6/uL (3.50-5.40); RED CELL DISTRIBUTION WIDTH 13.7 % (11.5-14.5); WHITE BLOOD COUNT 6.3 x10^3/uL (4.0-11.0)
[2018-11-09 05:40] LABS: ALBUMIN 2.7 g/dL (3.4-5.0); ALBUMIN/GLOBULIN RATIO 0.7 (1.0-1.7); CALCIUM 8.6 mg/dL (8.5-10.1); GFR 53.3; POTASSIUM 3.7 mmol/L (3.5-5.1); TOTAL BILIRUBIN 1.1 mg/dL (0.2-1.0); TOTAL PROTEIN 6.6 g/dL (6.4-8.2)
[2018-11-09] MEDS: LEVOTHYROXINE 75 MCG TABLET PO SCH (06:14)
[2018-11-09 07:00] VITALS: BP 132/62
--- NOTE | 2018-11-09 08:53 | PDOC ---
PROGRESS NOTES Chief Complaint Chief Complaint Lower abd pain, diarrhea, h/o diverticulitis Abnormal CT - sigmoid diverticulitis w/ intramural abscess CRC screen - three colonoscopies in her lifetime, last >10 years ago Cholelithiasis - noted on CT History of Present Illness History of Present Illness -- Surgery following - cont the antibiotics. small fluid collection may need f/u CT before dc, plan tomorrow unless other opinion Vitals Vitals Vital Signs Date Time Temp Pulse Resp B/P (MAP) Pulse Ox O2 Delivery O2 Flow Rate FiO2 11/09/18 07:00 97.7 69 17 132/62 (85) 96 Room Air 97.7 Physical Exam General: Alert, Oriented X3, Cooperative, mild distress Heart: Regular rate, Normal S1, Normal S2, No murmurs Abdomen: No hepatosplenomegaly Extremities: No cyanosis Skin: No rashes, No breakdown Labs LABS Laboratory Tests Test 11/09/18 05:00 White Blood Count 6.3 x10^3/uL (4.0-11.0) Red Blood Count 3.53 x10^6/uL (3.50-5.40) Hemoglobin 11.3 g/dL (12.0-15.5) Hematocrit 32.8 % (36.0-47.0) Mean Corpuscular Volume 93 fL (79-100) Mean Corpuscular Hemoglobin 32 pg (25-35) Mean Corpuscular Hemoglobin Concent 35 g/dL (31-37) Red Cell Distribution Width 13.7 % (11.5-14.5) Platelet Count 150 x10^3/uL (140-400) Neutrophils (%) (Auto) 63 % (31-73) Lymphocytes (%) (Auto) 27 % (24-48) Monocytes (%) (Auto) 6 % (0-9) Eosinophils (%) (Auto) 4 % (0-3) Basophils (%) (Auto) 1 % (0-3) Neutrophils # (Auto) 3.9 x10^3/uL (1.8-7.7) Lymphocytes # (Auto) 1.7 x10^3/uL (1.0-4.8) Monocytes # (Auto) 0.4 x10^3/uL (0.0-1.1) Eosinophils # (Auto) 0.2 x10^3/uL (0.0-0.7) Basophils # (Auto) 0.0 x10^3/uL (0.0-0.2) Sodium Level 143 mmol/L (136-145) Potassium Level 3.7 mmol/L (3.5-5.1) Chloride Level 108 mmol/L (98-107) Carbon Dioxide Level 25 mmol/L (21-32) Anion Gap 10 (6-14) Blood Urea Nitrogen 12 mg/dL (7-20) Creatinine 1.0 mg/dL (0.6-1.0) Estimated GFR (Cockcroft-Gault) 53.3 BUN/Creatinine Ratio 12 (6-20) Glucose Level 79 mg/dL (70-99) Calcium Level 8.6 mg/dL (8.5-10.1) Total Bilirubin 1.1 mg/dL (0.2-1.0) Aspartate Amino Transf (AST/SGOT) 22 U/L (15-37) Alanine Aminotransferase (ALT/SGPT) 18 U/L (14-59) Alkaline Phosphatase 119 U/L (46-116) Total Protein 6.6 g/dL (6.4-8.2) Albumin 2.7 g/dL (3.4-5.0) Albumin/Globulin Ratio 0.7 (1.0-1.7) Review of Systems Review of Systems still some lower abd pain diarrhea x3 ambulate OK no pain with full liq. Assessment and Plan Assessmemt and Plan Problems Medical Problems: (1) Abdominal pain Status: Acute (2) Cholelithiasis Status: Chronic (3) Diarrhea Status: Acute (4) Diverticulitis of intestine with abscess Status: Acute Comment Review of Relevant I have reviewed the following items corina (where applicable) has been applied. Labs Laboratory Tests Test 11/08/18 08:05 11/08/18 08:15 11/09/18 05:00 Urine Collection Type Void Urine Color Yellow Urine Clarity Clear Urine pH 5.5 Urine Specific [place] 1.020 Urine Protein Negative mg/dL (NEG-TRACE) Urine Glucose (UA) Negative mg/dL (NEG) Urine Ketones (Stick) Negative mg/dL (NEG) Urine Blood Negative (NEG) Urine Nitrite Negative (NEG) Urine Bilirubin Negative (NEG) Urine Urobilinogen Dipstick 0.2 mg/dL (0.2 mg/dL) Urine Leukocyte Esterase Small (NEG) Urine RBC Occ /HPF (0-2) Urine WBC 20-40 /HPF (0-4) Urine Squamous Epithelial Cells Few /LPF Urine Bacteria Mod /HPF (0-FEW) Urine Mucus Slight /LPF White Blood Count 9.1 x10^3/uL (4.0-11.0) 6.3 x10^3/uL (4.0-11.0) Red Blood Count 4.19 x10^6/uL (3.50-5.40) 3.53 x10^6/uL (3.50-5.40) Hemoglobin 13.5 g/dL (12.0-15.5) 11.3 g/dL (12.0-15.5) Hematocrit 38.7 % (36.0-47.0) 32.8 % (36.0-47.0) Mean Corpuscular Volume 92 fL (79-100) 93 fL (79-100) Mean Corpuscular Hemoglobin 32 pg (25-35) 32 pg (25-35) Mean Corpuscular Hemoglobin Concent 35 g/dL (31-37) 35 g/dL (31-37) Red Cell Distribution Width 13.3 % (11.5-14.5) 13.7 % (11.5-14.5) Platelet Count 186 x10^3/uL (140-400) 150 x10^3/uL (140-400) Neutrophils (%) (Auto) 70 % (31-73) 63 % (31-73) Lymphocytes (%) (Auto) 21 % (24-48) 27 % (24-48) Monocytes (%) (Auto) 6 % (0-9) 6 % (0-9) Eosinophils (%) (Auto) 2 % (0-3) 4 % (0-3) Basophils (%) (Auto) 1 % (0-3) 1 % (0-3) Neutrophils # (Auto) 6.3 x10^3/uL (1.8-7.7) 3.9 x10^3/uL (1.8-7.7) Lymphocytes # (Auto) 1.9 x10^3/uL (1.0-4.8) 1.7 x10^3/uL (1.0-4.8) Monocytes # (Auto) 0.6 x10^3/uL (0.0-1.1) 0.4 x10^3/uL (0.0-1.1) Eosinophils # (Auto) 0.2 x10^3/uL (0.0-0.7) 0.2 x10^3/uL (0.0-0.7) Basophils # (Auto) 0.1 x10^3/uL (0.0-0.2) 0.0 x10^3/uL (0.0-0.2) Sodium Level 140 mmol/L (136-145) 143 mmol/L (136-145) Potassium Level 3.8 mmol/L (3.5-5.1) 3.7 mmol/L (3.5-5.1) Chloride Level 103 mmol/L (98-107) 108 mmol/L (98-107) Carbon Dioxide Level 27 mmol/L (21-32) 25 mmol/L (21-32) Anion Gap 10 (6-14) 10 (6-14) Blood Urea Nitrogen 17 mg/dL (7-20) 12 mg/dL (7-20) Creatinine 1.2 mg/dL (0.6-1.0) 1.0 mg/dL (0.6-1.0) Estimated GFR (Cockcroft-Gault) 43.2 53.3 BUN/Creatinine Ratio 14 (6-20) 12 (6-20) Glucose Level 103 mg/dL (70-99) 79 mg/dL (70-99) Calcium Level 9.3 mg/dL (8.5-10.1) 8.6 mg/dL (8.5-10.1) Total Bilirubin 1.1 mg/dL (0.2-1.0) 1.1 mg/dL (0.2-1.0) Aspartate Amino Transf (AST/SGOT) 33 U/L (15-37) 22 U/L (15-37) Alanine Aminotransferase (ALT/SGPT) 25 U/L (14-59) 18 U/L (14-59) Alkaline Phosphatase 157 U/L (46-116) 119 U/L (46-116) Total Protein 8.1 g/dL (6.4-8.2) 6.6 g/dL (6.4-8.2) Albumin 3.4 g/dL (3.4-5.0) 2.7 g/dL (3.4-5.0) Albumin/Globulin Ratio 0.7 (1.0-1.7) 0.7 (1.0-1.7) Lipase 100 U/L (73-393) Laboratory Tests Test 11/09/18 05:00 White Blood Count 6.3 x10^3/uL (4.0-11.0) Red Blood Count 3.53 x10^6/uL (3.50-5.40) Hemoglobin 11.3 g/dL (12.0-15.5) Hematocrit 32.8 % (36.0-47.0) Mean Corpuscular Volume 93 fL (79-100) Mean Corpuscular Hemoglobin 32 pg (25-35) Mean Corpuscular Hemoglobin Concent 35 g/dL (31-37) Red Cell Distribution Width 13.7 % (11.5-14.5) Platelet Count 150 x10^3/uL (140-400) Neutrophils (%) (Auto) 63 % (31-73) Lymphocytes (%) (Auto) 27 % (24-48) Monocytes (%) (Auto) 6 % (0-9) Eosinophils (%) (Auto) 4 % (0-3) Basophils (%) (Auto) 1 % (0-3) Neutrophils # (Auto) 3.9 x10^3/uL (1.8-7.7) Lymphocytes # (Auto) 1.7 x10^3/uL (1.0-4.8) Monocytes # (Auto) 0.4 x10^3/uL (0.0-1.1) Eosinophils # (Auto) 0.2 x10^3/uL (0.0-0.7) Basophils # (Auto) 0.0 x10^3/uL (0.0-0.2) Sodium Level 143 mmol/L (136-145) Potassium Level 3.7 mmol/L (3.5-5.1) Chloride Level 108 mmol/L (98-107) Carbon Dioxide Level 25 mmol/L (21-32) Anion Gap 10 (6-14) Blood Urea Nitrogen 12 mg/dL (7-20) Creatinine 1.0 mg/dL (0.6-1.0) Estimated GFR (Cockcroft-Gault) 53.3 BUN/Creatinine Ratio 12 (6-20) Glucose Level 79 mg/dL (70-99) Calcium Level 8.6 mg/dL (8.5-10.1) Total Bilirubin 1.1 mg/dL (0.2-1.0) Aspartate Amino Transf (AST/SGOT) 22 U/L (15-37) Alanine Aminotransferase (ALT/SGPT) 18 U/L (14-59) Alkaline Phosphatase 119 U/L (46-116) Total Protein 6.6 g/dL (6.4-8.2) Albumin 2.7 g/dL (3.4-5.0) Albumin/Globulin Ratio 0.7 (1.0-1.7) Medications Current Medications Albuterol/ Ipratropium (Duoneb) 3 ml 1X ONCE NEB ; Start 11/08/18 at 08:15; Stop 11/08/18 at 08:30; Status DC Methylprednisolone Sodium Succinate (SOLU-Medrol 125MG VIAL) 125 mg 1X ONCE IV ; Start 11/08/18 at 08:15; Stop 11/08/18 at 08:30; Status DC Iohexol (Omnipaque 300 Mg/ml) 60 ml 1X ONCE IV Last administered on 11/08/18at 09:13; Start 11/08/18 at 09:00; Stop 11/08/18 at 09:01; Status DC Info (CONTRAST GIVEN -- Rx MONITORING) 1 each PRN DAILY PRN MC SEE COMMENTS; Start 11/08/18 at 09:00; Stop 11/10/18 at 08:59 Sodium Chloride 1,000 ml @ 1,000 mls/hr 1X ONCE IV Last administered on 11/08/18at 09:15; Start 11/08/18 at 09:00; Stop 11/08/18 at 09:59; Status DC Ondansetron HCl (Zofran) 4 mg PRN Q8HRS PRN IV NAUSEA/VOMITING; Start 11/08/18 at 10:15; Stop 11/09/18 at 10:14 Fentanyl Citrate (Fentanyl 2ml Vial) 50 mcg PRN Q1HR PRN IV PAIN; Start 11/08/18 at 10:15; Stop 11/09/18 at 10:14 Acetaminophen (Tylenol) 650 mg PRN Q4HRS PRN PO FEVER; Start 11/08/18 at 10:15; Stop 11/08/18 at 20:40; Status DC Piperacillin Sod/ Tazobactam Sod 3.375 gm/Sodium Chloride 50 ml @ 100 mls/hr 1X ONCE IV Last administered on 11/08/18at 10:53; Start 11/08/18 at 10:15; Stop 11/08/18 at 10:44; Status DC Sodium Chloride (Normal Saline Flush) 3 ml QSHIFT PRN IV AFTER MEDS AND BLOOD DRAWS; Start 11/08/18 at 14:00 Sodium Chloride 1,000 ml @ 100 mls/hr Q10H IV Last administered on 11/08/18at 18:47; Start 11/08/18 at 13:50 Acetaminophen (Tylenol) 650 mg PRN Q4HRS PRN PO TEMP OVER 100.4F OR MILD PAIN; Start 11/08/18 at 14:00 Al Hydroxide/Mg Hydroxide (Mylanta Plus Xs) 30 ml PRN DAILY PRN PO HEARTBURN / GAS; Start 11/08/18 at 14:00 Clonidine HCl (Catapres) 0.1 mg PRN Q6HRS PRN PO SBP>160 OR DBP>90; Start 11/08/18 at 14:00 Docusate Sodium (Colace) 100 mg PRN BID PRN PO CONSTIPATION; Start 11/08/18 at 14:00 Albuterol Sulfate (Ventolin Neb Soln) 2.5 mg PRN Q4HRS PRN NEB SHORTNESS OF BREATH; Start 11/08/18 at 14:00 Lorazepam (Ativan) 0.5 mg PRN Q4HRS PRN PO ANXIETY / AGITATION; Start 11/08/18 at 14:00 Hydromorphone HCl (Dilaudid) 1 mg PRN Q4HRS PRN IV SEVERE PAIN 7-10; Start 11/08/18 at 14:00 Enoxaparin Sodium (Lovenox 40mg Syringe) 40 mg DAILY SQ ; Start 11/09/18 at 09:00 Piperacillin Sod/ Tazobactam Sod 3.375 gm/Sodium Chloride 50 ml @ 100 mls/hr Q6HRS IV Last administered on 11/09/18at 06:15; Start 11/08/18 at 14:00 Atorvastatin Calcium (Lipitor) 40 mg HS PO Last administered on 11/08/18at 21:15; Start 11/08/18 at 21:00 Levothyroxine Sodium (Synthroid) 75 mcg DAILY06 PO Last administered on 11/09/18at 06:15; Start 11/09/18 at 06:00 Lisinopril (Prinivil) 10 mg DAILY PO ; Start 11/09/18 at 09:00 Temazepam (Restoril) 7.5 mg PRN QHS PRN PO INSOMNIA; Start 11/08/18 at 20:45 Active Scripts Active Reported Lisinopril 10 Mg Tablet 10 Mg PO DAILY Levothyroxine Sodium 75 Mcg Tablet 75 Mcg PO DAILYAC Atorvastatin Calcium 40 Mg Tablet 40 Mg PO HS Vitals/I & O Vital Sign - Last 24 Hours 11/08/18 11/08/18 11/08/18 11/08/18 09:09 10:09 10:39 11:09 Pulse 70 72 76 Resp 18 18 18 B/P (MAP) 121/58 (79) 126/69 (88) 137/70 (92) 138/64 (88) Pulse Ox 99 98 90 O2 Delivery Room Air Room Air Room Air 11/08/18 11/08/18 11/08/18 11/08/18 15:00 19:00 20:00 20:35 Temp 98.1 97.5 98.1 97.5 Pulse 68 67 Resp 18 18 B/P (MAP) 117/52 (73) 127/54 (78) Pulse Ox 96 96 100 O2 Delivery Room Air Room Air Room Air Room Air 11/08/18 11/09/18 11/09/18 23:00 03:00 07:00 Temp 98.3 97.9 97.7 98.3 97.9 97.7 Pulse 72 71 69 Resp 18 18 17 B/P (MAP) 131/62 (85) 135/71 (92) 132/62 (85) Pulse Ox 98 96 96 O2 Delivery Room Air Room Air Room Air Intake and Output 11/08/18 11/08/18 11/09/18 14:59 22:59 06:59 Intake Total 1050 ml Balance 1050 ml AMMY OTTO MD Nov 09, 2018 08:52
[2018-11-09] MEDS: ENOXAPARIN 40 MG/0.4 ML SYRINGE. SQ SCH (09:00)
[2018-11-09] MEDS: LISINOPRIL 10 MG TABLET PO SCH (09:52)
[2018-11-09] MEDS: IV NORMAL SALINE 1000ML BAG 1,000 ML IV SCH ×2 (09:53→18:15)
--- NOTE | 2018-11-09 10:43 | PDOC ---
Subjective: Subjective: Says had pudding and cream of wheat for breakfast, then had a loose stool. Lower abd pain is better. Objective: Vital Signs: Vital Signs Date Time Temp Pulse Resp B/P (MAP) Pulse Ox O2 Delivery O2 Flow Rate FiO2 11/09/18 09:53 77 128/65 11/09/18 07:00 97.7 17 96 Room Air 97.7 Labs: Laboratory Tests Test 11/09/18 05:00 White Blood Count 6.3 x10^3/uL Red Blood Count 3.53 x10^6/uL Hemoglobin 11.3 g/dL Hematocrit 32.8 % Mean Corpuscular Volume 93 fL Mean Corpuscular Hemoglobin 32 pg Mean Corpuscular Hemoglobin Concent 35 g/dL Red Cell Distribution Width 13.7 % Platelet Count 150 x10^3/uL Neutrophils (%) (Auto) 63 % Lymphocytes (%) (Auto) 27 % Monocytes (%) (Auto) 6 % Eosinophils (%) (Auto) 4 % Basophils (%) (Auto) 1 % Neutrophils # (Auto) 3.9 x10^3/uL Lymphocytes # (Auto) 1.7 x10^3/uL Monocytes # (Auto) 0.4 x10^3/uL Eosinophils # (Auto) 0.2 x10^3/uL Basophils # (Auto) 0.0 x10^3/uL Sodium Level 143 mmol/L Potassium Level 3.7 mmol/L Chloride Level 108 mmol/L Carbon Dioxide Level 25 mmol/L Anion Gap 10 Blood Urea Nitrogen 12 mg/dL Creatinine 1.0 mg/dL Estimated GFR (Cockcroft-Gault) 53.3 BUN/Creatinine Ratio 12 Glucose Level 79 mg/dL Calcium Level 8.6 mg/dL Total Bilirubin 1.1 mg/dL Aspartate Amino Transf (AST/SGOT) 22 U/L Alanine Aminotransferase (ALT/SGPT) 18 U/L Alkaline Phosphatase 119 U/L Total Protein 6.6 g/dL Albumin 2.7 g/dL Albumin/Globulin Ratio 0.7 PE: GEN: NAD - walking from restroom back to bed LUNGS: CTAB HEART: RRR ABD: soft, less LLQ discomfort NEURO/PSYCH: A & O �3 A/P: Sigmoid diverticulitis w/ intramural abscess -- Pain improved, continue antibiotics. SAEED LOWE Nov 09, 2018 10:43
[2018-11-09 11:00] VITALS: BP 116/54
--- NOTE | 2018-11-09 14:26 | PDOC ---
SURGICAL PROGRESS NOTE Subjective Pt reports feeling better, carri PO, no n/V, reports pain improved, passed loose stools Vital Signs Vital Signs Date Time Temp Pulse Resp B/P (MAP) Pulse Ox O2 Delivery O2 Flow Rate FiO2 11/09/18 11:00 97.5 65 17 116/54 (74) 97 Room Air 97.5 I&O Intake and Output 11/09/18 07:00 Intake Total 1050 ml Balance 1050 ml IV Total 1050 ml # Voids 5 General: Alert, Oriented X3, Cooperative, No acute distress Abdomen: Soft, No tenderness Labs Laboratory Tests Test 11/08/18 08:05 11/08/18 08:15 11/09/18 05:00 Urine Collection Type Void Urine Color Yellow Urine Clarity Clear Urine pH 5.5 Urine Specific Spencer 1.020 Urine Protein Negative mg/dL (NEG-TRACE) Urine Glucose (UA) Negative mg/dL (NEG) Urine Ketones (Stick) Negative mg/dL (NEG) Urine Blood Negative (NEG) Urine Nitrite Negative (NEG) Urine Bilirubin Negative (NEG) Urine Urobilinogen Dipstick 0.2 mg/dL (0.2 mg/dL) Urine Leukocyte Esterase Small (NEG) Urine RBC Occ /HPF (0-2) Urine WBC 20-40 /HPF (0-4) Urine Squamous Epithelial Cells Few /LPF Urine Bacteria Mod /HPF (0-FEW) Urine Mucus Slight /LPF White Blood Count 9.1 x10^3/uL (4.0-11.0) 6.3 x10^3/uL (4.0-11.0) Red Blood Count 4.19 x10^6/uL (3.50-5.40) 3.53 x10^6/uL (3.50-5.40) Hemoglobin 13.5 g/dL (12.0-15.5) 11.3 g/dL (12.0-15.5) Hematocrit 38.7 % (36.0-47.0) 32.8 % (36.0-47.0) Mean Corpuscular Volume 92 fL (79-100) 93 fL (79-100) Mean Corpuscular Hemoglobin 32 pg (25-35) 32 pg (25-35) Mean Corpuscular Hemoglobin Concent 35 g/dL (31-37) 35 g/dL (31-37) Red Cell Distribution Width 13.3 % (11.5-14.5) 13.7 % (11.5-14.5) Platelet Count 186 x10^3/uL (140-400) 150 x10^3/uL (140-400) Neutrophils (%) (Auto) 70 % (31-73) 63 % (31-73) Lymphocytes (%) (Auto) 21 % (24-48) 27 % (24-48) Monocytes (%) (Auto) 6 % (0-9) 6 % (0-9) Eosinophils (%) (Auto) 2 % (0-3) 4 % (0-3) Basophils (%) (Auto) 1 % (0-3) 1 % (0-3) Neutrophils # (Auto) 6.3 x10^3/uL (1.8-7.7) 3.9 x10^3/uL (1.8-7.7) Lymphocytes # (Auto) 1.9 x10^3/uL (1.0-4.8) 1.7 x10^3/uL (1.0-4.8) Monocytes # (Auto) 0.6 x10^3/uL (0.0-1.1) 0.4 x10^3/uL (0.0-1.1) Eosinophils # (Auto) 0.2 x10^3/uL (0.0-0.7) 0.2 x10^3/uL (0.0-0.7) Basophils # (Auto) 0.1 x10^3/uL (0.0-0.2) 0.0 x10^3/uL (0.0-0.2) Sodium Level 140 mmol/L (136-145) 143 mmol/L (136-145) Potassium Level 3.8 mmol/L (3.5-5.1) 3.7 mmol/L (3.5-5.1) Chloride Level 103 mmol/L (98-107) 108 mmol/L (98-107) Carbon Dioxide Level 27 mmol/L (21-32) 25 mmol/L (21-32) Anion Gap 10 (6-14) 10 (6-14) Blood Urea Nitrogen 17 mg/dL (7-20) 12 mg/dL (7-20) Creatinine 1.2 mg/dL (0.6-1.0) 1.0 mg/dL (0.6-1.0) Estimated GFR (Cockcroft-Gault) 43.2 53.3 BUN/Creatinine Ratio 14 (6-20) 12 (6-20) Glucose Level 103 mg/dL (70-99) 79 mg/dL (70-99) Calcium Level 9.3 mg/dL (8.5-10.1) 8.6 mg/dL (8.5-10.1) Total Bilirubin 1.1 mg/dL (0.2-1.0) 1.1 mg/dL (0.2-1.0) Aspartate Amino Transf (AST/SGOT) 33 U/L (15-37) 22 U/L (15-37) Alanine Aminotransferase (ALT/SGPT) 25 U/L (14-59) 18 U/L (14-59) Alkaline Phosphatase 157 U/L (46-116) 119 U/L (46-116) Total Protein 8.1 g/dL (6.4-8.2) 6.6 g/dL (6.4-8.2) Albumin 3.4 g/dL (3.4-5.0) 2.7 g/dL (3.4-5.0) Albumin/Globulin Ratio 0.7 (1.0-1.7) 0.7 (1.0-1.7) Lipase 100 U/L (73-393) Laboratory Tests Test 11/09/18 05:00 White Blood Count 6.3 x10^3/uL (4.0-11.0) Red Blood Count 3.53 x10^6/uL (3.50-5.40) Hemoglobin 11.3 g/dL (12.0-15.5) Hematocrit 32.8 % (36.0-47.0) Mean Corpuscular Volume 93 fL (79-100) Mean Corpuscular Hemoglobin 32 pg (25-35) Mean Corpuscular Hemoglobin Concent 35 g/dL (31-37) Red Cell Distribution Width 13.7 % (11.5-14.5) Platelet Count 150 x10^3/uL (140-400) Neutrophils (%) (Auto) 63 % (31-73) Lymphocytes (%) (Auto) 27 % (24-48) Monocytes (%) (Auto) 6 % (0-9) Eosinophils (%) (Auto) 4 % (0-3) Basophils (%) (Auto) 1 % (0-3) Neutrophils # (Auto) 3.9 x10^3/uL (1.8-7.7) Lymphocytes # (Auto) 1.7 x10^3/uL (1.0-4.8) Monocytes # (Auto) 0.4 x10^3/uL (0.0-1.1) Eosinophils # (Auto) 0.2 x10^3/uL (0.0-0.7) Basophils # (Auto) 0.0 x10^3/uL (0.0-0.2) Sodium Level 143 mmol/L (136-145) Potassium Level 3.7 mmol/L (3.5-5.1) Chloride Level 108 mmol/L (98-107) Carbon Dioxide Level 25 mmol/L (21-32) Anion Gap 10 (6-14) Blood Urea Nitrogen 12 mg/dL (7-20) Creatinine 1.0 mg/dL (0.6-1.0) Estimated GFR (Cockcroft-Gault) 53.3 BUN/Creatinine Ratio 12 (6-20) Glucose Level 79 mg/dL (70-99) Calcium Level 8.6 mg/dL (8.5-10.1) Total Bilirubin 1.1 mg/dL (0.2-1.0) Aspartate Amino Transf (AST/SGOT) 22 U/L (15-37) Alanine Aminotransferase (ALT/SGPT) 18 U/L (14-59) Alkaline Phosphatase 119 U/L (46-116) Total Protein 6.6 g/dL (6.4-8.2) Albumin 2.7 g/dL (3.4-5.0) Albumin/Globulin Ratio 0.7 (1.0-1.7) Problem List Problems Medical Problems: (1) Abdominal pain Status: Acute (2) Cholelithiasis Status: Chronic (3) Diarrhea Status: Acute (4) Diverticulitis of intestine with abscess Status: Acute Assessment/Plan diverticulitis, clinically improving cont abx and [facility] no surgical plans. Repeat CT may be helpful, but probably not needed, given clinical improvement. ANUP GILLESPIE MD Nov 09, 2018 14:26
[2018-11-09 15:00] VITALS: BP 141/60
[2018-11-09 19:00] VITALS: BP 153/63
[2018-11-09] MEDS: ATORVASTATIN CALCIUM 40 MG TABLET. PO SCH (20:40)
[2018-11-09] MEDS: LACTOBACILLUS RHAMNOSUS GG 1 CAPSULE. PO SCH (20:40)
[2018-11-09 23:00] VITALS: BP 149/66
[2018-11-10 03:00] VITALS: BP 124/50
[2018-11-10] MEDS: LEVOTHYROXINE 75 MCG TABLET PO SCH (05:04)
[2018-11-10] MEDS: PIPERACILLIN/TAZOBACTAM 3.375 GM in IV NORMAL SALINE 50ML 50 ML IV SCH (05:05)
[2018-11-10] MEDS: IV NORMAL SALINE 1000ML BAG 1,000 ML IV SCH (05:05)
[2018-11-10 07:00] VITALS: BP 161/74
--- NOTE | 2018-11-10 08:11 | NUR ---
SW following pt for dc planning. Chart reviewed. Pt lives at home with family. PT/OT recommends home with assistance. Will continue to follow pending dc needs. Addendum: 11/10/18 at 1135 by JESSICA PORTILLO SW SW following pt. Spoke with pt about home health, pt declined. Pt claims she has enough support at home and does not think she needs HH services. Pt states her son will pick her up around 1300. RN notified.
[2018-11-10] MEDS: ENOXAPARIN 40 MG/0.4 ML SYRINGE. SQ SCH (09:00)
[2018-11-10] MEDS ORDERED: AMOX1TAB61 PO (10:28)
[2018-11-10] MEDS ORDERED: LACT1CAP19 PO (10:28)
--- NOTE | 2018-11-10 10:30 | SNU/HH DC ---
DISCHARGE WITH HOME HEALTH DISCHARGE INFORMATION: Discharge Date: Nov 10, 2018 Final Diagnosis: Problems Medical Problems: (1) Abdominal pain Status: Acute (2) Cholelithiasis Status: Chronic (3) Diarrhea Status: Acute (4) Diverticulitis of intestine with abscess Status: Acute Condition on Discharge: Stable CODE STATUS: Code Status: DNR/DNI HOME HEALTH: Face to Face: I certify this patient is under my care and that I, had a face to face encounter that meets the physician face to face encounter requirements with this patient on 11/10 Medical Complications: Other (diverticulitis) Halfway For: Assess/Skilled Observatio, Medication Management RN For Eval/Treatment: Yes Physical Therapy For: Evalulation/Treatment Pt Meets Homebound Status: Limited distance walking (current gut infection, ), Other: FOLLOW-UP: Follow up with: primary care, as needed TREATMENT/EQUIPMENT ORDERS: Adaptive Equipment Issued: None CERTIFICATION STATEMENT: Certification Statement: Certification Statement: Based on the above finding, I certify that this patient is confined to the home and needs intermittent longterm care, physical therapy and/or speech therapy, or continues to need occupational therapy.~ This patient is under my care, and I have initiated the establishment of the plan of care.~ This patient will be followed by myself or a community physician who will periodically review the plan of care. Home Meds Active Scripts Amoxicillin/Potassium Clav (AUGMENTIN 875-125 TABLET) 1 Each Tablet, 1 TAB PO BID for diverticulitis, #14 TAB Prov:AMMY OTTO MD 11/10/18 Lactobacillus Rhamnosus Gg (CULTURELLE) 1 Each Cap.sprink, 1 CAP PO BID for gut health on antibiotic, #30 CAP Prov:AMMY OTTO MD 11/10/18 Reported Medications Lisinopril (LISINOPRIL) 10 Mg Tablet, 10 MG PO DAILY for FOR HYPERTENSION, #30 TAB 0 Refills 11/08/18 Levothyroxine Sodium (LEVOTHYROXINE SODIUM) 75 Mcg Tablet, 75 MCG PO DAILYAC for THYROID SUPPLEMENT, #30 TAB 0 Refills 11/08/18 Atorvastatin Calcium (ATORVASTATIN CALCIUM) 40 Mg Tablet, 40 MG PO HS for FOR CHOLESTEROL, #30 TAB 0 Refills 11/08/18 AMMY OTTO MD Nov 10, 2018 10:30
--- NOTE | 2018-11-10 10:32 | PDOC3 ---
Discharge Summary Visit Information Date of Admission: Nov 08, 2018 Date of Discharge: Nov 10, 2018 Final Diagnosis Lower abd pain, diarrhea, acute diverticulitis Abnormal CT - sigmoid diverticulitis w/ intramural abscess obese, BMI 32 Cholelithiasis - noted on CT htn lipids hypothyroid, stable Problems Medical Problems: (1) Abdominal pain Status: Acute (2) Cholelithiasis Status: Chronic (3) Diarrhea Status: Acute (4) Diverticulitis of intestine with abscess Status: Acute Brief Hospital Course Allergies Allergies Coded Allergies Type Severity Reaction Last Updated Verified No Known Drug Allergies 08/13/13 No Vital Signs Vital Signs Date Time Temp Pulse Resp B/P (MAP) Pulse Ox O2 Delivery O2 Flow Rate FiO2 11/10/18 07:00 97.6 68 14 161/74 (103) 96 Room Air 97.6 Lab Results Laboratory Tests Test 11/09/18 05:00 11/09/18 14:10 White Blood Count 6.3 x10^3/uL (4.0-11.0) Red Blood Count 3.53 x10^6/uL (3.50-5.40) Hemoglobin 11.3 g/dL (12.0-15.5) Hematocrit 32.8 % (36.0-47.0) Mean Corpuscular Volume 93 fL (79-100) Mean Corpuscular Hemoglobin 32 pg (25-35) Mean Corpuscular Hemoglobin Concent 35 g/dL (31-37) Red Cell Distribution Width 13.7 % (11.5-14.5) Platelet Count 150 x10^3/uL (140-400) Neutrophils (%) (Auto) 63 % (31-73) Lymphocytes (%) (Auto) 27 % (24-48) Monocytes (%) (Auto) 6 % (0-9) Eosinophils (%) (Auto) 4 % (0-3) Basophils (%) (Auto) 1 % (0-3) Neutrophils # (Auto) 3.9 x10^3/uL (1.8-7.7) Lymphocytes # (Auto) 1.7 x10^3/uL (1.0-4.8) Monocytes # (Auto) 0.4 x10^3/uL (0.0-1.1) Eosinophils # (Auto) 0.2 x10^3/uL (0.0-0.7) Basophils # (Auto) 0.0 x10^3/uL (0.0-0.2) Sodium Level 143 mmol/L (136-145) Potassium Level 3.7 mmol/L (3.5-5.1) Chloride Level 108 mmol/L (98-107) Carbon Dioxide Level 25 mmol/L (21-32) Anion Gap 10 (6-14) Blood Urea Nitrogen 12 mg/dL (7-20) Creatinine 1.0 mg/dL (0.6-1.0) Estimated GFR (Cockcroft-Gault) 53.3 BUN/Creatinine Ratio 12 (6-20) Glucose Level 79 mg/dL (70-99) Calcium Level 8.6 mg/dL (8.5-10.1) Total Bilirubin 1.1 mg/dL (0.2-1.0) Aspartate Amino Transf (AST/SGOT) 22 U/L (15-37) Alanine Aminotransferase (ALT/SGPT) 18 U/L (14-59) Alkaline Phosphatase 119 U/L (46-116) Total Protein 6.6 g/dL (6.4-8.2) Albumin 2.7 g/dL (3.4-5.0) Albumin/Globulin Ratio 0.7 (1.0-1.7) Clostridium difficile Toxin B Gene Negative (Negative) Laboratory Tests Test 11/09/18 14:10 Clostridium difficile Toxin B Gene Negative (Negative) Brief Hospital Course Ms. Emery is a 78 old [sex] who presented with [ ] Discharge Information Condition at Discharge: Improved Follow Up: Weeks Disposition/Orders: D/C to Home w/ HH Scheduled Amoxicillin/Potassium Clav (Augmentin 875-125 Tablet) 1 Each Tablet, 1 TAB PO BID for diverticulitis, #14 Prescribed by: AMMY OTTO on 11/10/18 1028 Atorvastatin Calcium (Atorvastatin Calcium) 40 Mg Tablet, 40 MG PO HS for FOR CHOLESTEROL, #30 Ref 0 (Reported) Entered as Reported by: KEZIA MILES RN on 11/08/182015 Last Action: Continued on 11/08/182037 by ELIZABETH GAGNON Lactobacillus Rhamnosus Gg (Culturelle) 1 Each Cap.sprink, 1 CAP PO BID for gut health on antibiotic, #30 Prescribed by: AMMY OTTO on 11/10/18 1028 Levothyroxine Sodium (Levothyroxine Sodium) 75 Mcg Tablet, 75 MCG PO DAILYAC for THYROID SUPPLEMENT, #30 Ref 0 (Reported) Entered as Reported by: KEZIA MILES RN on 11/08/182015 Last Action: Continued on 11/08/182037 by ELIZABETH GAGNON Lisinopril (Lisinopril) 10 Mg Tablet, 10 MG PO DAILY for FOR HYPERTENSION, #30 R ef 0 (Reported) Entered as Reported by: KEZIA MILES RN on 11/08/182015 Last Action: Continued on 11/08/182037 by ELIZABETH GAGNON Patient Instructions Patient Instructions > 30 min' face to face AMMY Ayoub MD Nov 10, 2018 10:31
--- NOTE | 2018-11-10 10:34 | PDOC ---
Subjective: Subjective: Doing better - pain is less and intermittent - wants to eat more, had clears this morning. Objective: Objective: Reviewed chart - surgery recs to [facility] yesterday. Vital Signs: Vital Signs Date Time Temp Pulse Resp B/P (MAP) Pulse Ox O2 Delivery O2 Flow Rate FiO2 11/10/18 07:00 97.6 68 14 161/74 (103) 96 Room Air 97.6 Labs: Laboratory Tests Test 11/09/18 14:10 Clostridium difficile Toxin B Gene Negative PE: GEN: NAD LUNGS: CTAB HEART: RRR ABD: S/ND/NT NEURO/PSYCH: A & O �3 A/P: Sigmoid diverticulitis w/ intramural abscess -- Improving - [facility] - d/w RN - ?SAEED Hall Nov 10, 2018 10:34
[2018-11-10] MEDS: LACTOBACILLUS RHAMNOSUS GG 1 CAPSULE. PO SCH (10:46)
[2018-11-10] MEDS: LISINOPRIL 10 MG TABLET PO SCH (10:47)
[2018-11-10 11:00] VITALS: BP 155/69
--- NOTE | 2018-11-10 11:20 | PDOC ---
SURGICAL PROGRESS NOTE Subjective no pain no n/v tolerating full liquids Vital Signs Vital Signs Date Time Temp Pulse Resp B/P (MAP) Pulse Ox O2 Delivery O2 Flow Rate FiO2 11/10/18 10:47 68 161/74 11/10/18 07:00 97.6 14 96 Room Air 97.6 I&O Intake and Output 11/10/18 07:00 Intake Total 2800 ml Balance 2800 ml Intake Oral 2800 ml # Voids 5 General: Alert, Oriented X3, Cooperative, No acute distress Abdomen: Normal bowel sounds, Soft, No tenderness, No hepatosplenomegaly Labs Laboratory Tests Test 11/09/18 05:00 11/09/18 14:10 White Blood Count 6.3 x10^3/uL (4.0-11.0) Red Blood Count 3.53 x10^6/uL (3.50-5.40) Hemoglobin 11.3 g/dL (12.0-15.5) Hematocrit 32.8 % (36.0-47.0) Mean Corpuscular Volume 93 fL (79-100) Mean Corpuscular Hemoglobin 32 pg (25-35) Mean Corpuscular Hemoglobin Concent 35 g/dL (31-37) Red Cell Distribution Width 13.7 % (11.5-14.5) Platelet Count 150 x10^3/uL (140-400) Neutrophils (%) (Auto) 63 % (31-73) Lymphocytes (%) (Auto) 27 % (24-48) Monocytes (%) (Auto) 6 % (0-9) Eosinophils (%) (Auto) 4 % (0-3) Basophils (%) (Auto) 1 % (0-3) Neutrophils # (Auto) 3.9 x10^3/uL (1.8-7.7) Lymphocytes # (Auto) 1.7 x10^3/uL (1.0-4.8) Monocytes # (Auto) 0.4 x10^3/uL (0.0-1.1) Eosinophils # (Auto) 0.2 x10^3/uL (0.0-0.7) Basophils # (Auto) 0.0 x10^3/uL (0.0-0.2) Sodium Level 143 mmol/L (136-145) Potassium Level 3.7 mmol/L (3.5-5.1) Chloride Level 108 mmol/L (98-107) Carbon Dioxide Level 25 mmol/L (21-32) Anion Gap 10 (6-14) Blood Urea Nitrogen 12 mg/dL (7-20) Creatinine 1.0 mg/dL (0.6-1.0) Estimated GFR (Cockcroft-Gault) 53.3 BUN/Creatinine Ratio 12 (6-20) Glucose Level 79 mg/dL (70-99) Calcium Level 8.6 mg/dL (8.5-10.1) Total Bilirubin 1.1 mg/dL (0.2-1.0) Aspartate Amino Transf (AST/SGOT) 22 U/L (15-37) Alanine Aminotransferase (ALT/SGPT) 18 U/L (14-59) Alkaline Phosphatase 119 U/L (46-116) Total Protein 6.6 g/dL (6.4-8.2) Albumin 2.7 g/dL (3.4-5.0) Albumin/Globulin Ratio 0.7 (1.0-1.7) Clostridium difficile Toxin B Gene Negative (Negative) Laboratory Tests Test 11/09/18 14:10 Clostridium difficile Toxin B Gene Negative (Negative) Problem List Problems Medical Problems: (1) Abdominal pain Status: Acute (2) Cholelithiasis Status: Chronic (3) Diarrhea Status: Acute (4) Diverticulitis of intestine with abscess Status: Acute Assessment/Plan improved continue abx CARMEN ASCENCIO APRN Nov 10, 2018 11:20
== END 2018-11-10 13:22 | disposition home or self-care (01) | DRG 392 ==
LOC: ER 07:38 → 5 NORTH 10:01
PROVIDERS: ADMIT Family Medicine; ATTEND Family Medicine
DX: K57.20 Diverticulitis of large intestine with perforation and abscess without bleeding (principal); E03.9 Hypothyroidism, unspecified; E66.9 Obesity, unspecified; E78.00 Pure hypercholesterolemia, unspecified; E78.5 Hyperlipidemia, unspecified; I10 Essential (primary) hypertension; K80.20 Calculus of gallbladder without cholecystitis without obstruction; Z68.32 Body mass index [BMI] 32.0-32.9, adult; Z82.49 Family history of ischemic heart disease and other diseases of the circulatory system
CPT/HCPCS: 36415; 74177; 80053; 81001; 83690; 85025; 87040; 87045; 87493; 93005; 96361; 96365; J2543; J7030; Q9967; 97530; 99285-25; G0378

== ENCOUNTER 2021-01-24 01:17 | Emergency (ER) | payer MEDICARE ==
[~2021-01-24] VITALS: Ht 160 cm; Wt 82.7 kg
[~2021-01-24 01:17] MED LIST: AMOX1TAB61 PO; ATOR40TA59 PO; LACT1CAP19 PO; LEVO75TA5 PO; LISI10TA16 PO
[2021-01-24 02:08] VITALS: BP 133/67
[2021-01-24] MEDS ORDERED: HYDROcodone/APAP 5/325MG 1 TAB TABLET PO ONE (02:15)
[2021-01-24] MEDS ORDERED: HYDR-2761 PO (03:48)
--- NOTE | 2021-01-24 03:49 | PHYS DOC ---
Past Medical History Past Medical History: Diverticulosis, High Cholesterol, Hypertension, Hyp othyroid Past Surgical History: Other Additional Past Surgical Histo: LEFT SHOULDER SX, CATARATS Smoking Status: Never Smoker Alcohol Use: Rarely Drug Use: None General Adult EDM: Chief Complaint: FOOT INJURY PAIN HPI: HPI: Patient is a 80 year old here with report of right foot pain. She tripped over her cat, while trying to get up off of her bed. She has pain with attempted weightbearing, though she can bear weight. She denies dizziness, weakness, syncope, headache, neck pain, back pain, hip, thigh, or knee pain. Denies numbness tingling or weakness. Denies open wounds. This occurred about an hour or 2 prior to arrival. No meds taken prior to arrival. Her grand daughter drove her here. Review of Systems: Review of Systems: Constitutional: Denies fever or chills. [] Respiratory: Denies cough or shortness of breath. [] Cardiovascular: Denies chest pain or edema. [] GI: Denies abdominal pain, nausea, vomiting] : Denies urinary symptoms Musculoskeletal: Right foot pain and contusion. Integument: Denies rash. Denies open wounds. Neurologic: Denies headache, focal weakness or sensory changes. [] Psychiatric: Denies depression or anxiety. [] Heart Score: C/O Chest Pain: No Risk Factors: Risk Factors: DM, Current or recent (<one month) smoker, HTN, HLP, family history of CAD, obesity. Risk Scores: Score 0 - 3: 2.5% MACE over next 6 weeks - Discharge Home Score 4 - 6: 20.3% MACE over next 6 weeks - Admit for Clinical Observation Score 7 - 10: 72.7% MACE over next 6 weeks - Early Invasive Strategies Current Medications: Current Medications Medications (Trade) Dose Ordered Sig/Dinah Start Time Stop Time Status Last Admin Dose Admin Acetaminophen/ Hydrocodone Bitart (Lortab 5/325) 1 tab 1X ONCE 01/24/21 02:15 01/24/21 02:16 DC 01/24/21 02:12 1 TAB Allergies: Allergies: Allergies Coded Allergies Type Severity Reaction Last Updated Verified No Known Drug Allergies 08/13/13 No Physical Exam: PE: Constitutional: Well developed, well nourished, no acute distress, non-toxic appearance. [] HENT: Normocephalic, atraumatic Eyes: Sclera clear and anicteric Neck: Trachea is midline Cardiovascular: Well-perfused appearing, +2 dorsalis pedis and radial pulses bilaterally Lungs & Thorax: Respirations are nonlabored Skin: Warm, dry, no erythema, no rash. Large right dorsal foot contusion with soft tissue swelling. No open wounds. No abrasions or lacerations. No bleeding. Extremities: Moderate soft tissue swelling and contusion of the dorsum of the right foot. Diffuse soft tissue tenderness. No palpable crepitus or step-offs or deformity. No ankle tenderness. No ligamentous laxity. Full eversion, inversion, dorsiflexion and plantarflexion of the right foot. No calf tenderness. Pelvis is stable. Right knee is nontender. Neurologic: Alert and oriented X 3, normal motor function, normal sensory function, no focal deficits noted. [] Psychologic: Affect normal, judgement normal, mood normal. He is pleasant and cooperative. Current Patient Data: Vital Signs: Vital Signs Date Time Temp Pulse Resp B/P (MAP) Pulse Ox O2 Delivery O2 Flow Rate FiO2 01/24/21 02:12 16 99 01/24/21 02:08 133/67 (89) EKG: EKG: [] Radiology/Procedures: Radiology/Procedures: IMAGING REPORT Signed PATIENT: VIRA NAVAS ACCOUNT: [id number] : 1940 LOCATION: ER AGE: 80 SEX: F EXAM STATUS: DEP ER ORD. PHYSICIAN: QUINTON SANTIAGO DO REASON: injury, pain PROCEDURE: FOOT RIGHT 3V Examination: 3 views of the right foot HISTORY: History of injury, pain COMPARISON: None available FINDINGS: The alignment of the tarsal bones, tarsometatarsal joints. Tarsophalangeal joints, interphalangeal grossly appears unremarkable.Mild joint space loss first MTP joint likely degenerative changes. Mild soft tissue swelling dorsal to the right foot. IMPRESSION: 1. No acute osseous findings. 2. Mild soft tissue swelling dorsal to the right foot. Electronically signed by: Darrin Saldana MD (01/24/2021 6:42 AM) [id number] DICTATED and SIGNED BY: DARRIN SALDANA MD DATE: 01/24/21 [id number] 0 Course & Med Decision Making: Course & Med Decision Making Pertinent Labs and Imaging studies reviewed. (See chart for details) Ice pack, p.o. [place], Kike wrap and postop shoe given. No acute fracture noted on x-ray. I discussed the findings, differential diagnosis and plan of care with the patient. I discussed home care and instructions, including RICE. I told her to follow-up with her primary care physician. Return precautions are given. Dragon Disclaimer: Mateo Disclaimer: This electronic medical record was generated, in whole or in part, using a voice recognition dictation system. Departure Departure Impression: Primary Impression: Contusion of right foot Qualified Codes: S90.31XA - Contusion of right foot, initial encounter Disposition: HOME / SELF CARE / HOMELESS Condition: STABLE Referrals: FABRICE GENAO MD (PCP) Patient Instructions: Foot Contusion Additional Instructions: Use the medication as needed/as directed. Ice and elevate your foot at rest. Return for new injury or trauma, severe skin redness, fever 100.4 or higher, more severe pain or any other concerns. Please follow-up with your primary care physician. Scripts Hydrocodone Bit/Acetaminophen (HYDROCODONE-APAP 5-325 ) 1 Tab Tablet 1 TAB PO PRN Q6HRS PRN for PAIN, #15 TAB 0 Refills Prov: QUINTON SANTIAGO DO 01/24/21 QUINTON SANTIAGO DO Jan 24, 2021 03:49
--- NOTE | 2021-01-24 06:44 | RAD ---
Examination: 3 views of the right foot HISTORY: History of injury, pain COMPARISON: None available FINDINGS: The alignment of the tarsal bones, tarsometatarsal joints. Tarsophalangeal joints, interphalangeal gr ossly appears unremarkable.Mild joint space loss first MTP joint likely degenerative changes. Mild so ft tissue swelling dorsal to the right foot. IMPRESSION: 1. No acute osseous findings. 2. Mild soft tissue swelling dorsal to the right foot. Electronically signed by: Darrin Saldana MD (01/24/2021 6:42 AM) [id number]
== END 2021-01-24 04:06 | disposition home or self-care (01) ==
LOC: ER 01:17
DX: S90.31XA Contusion of right foot, initial encounter (principal); E03.9 Hypothyroidism, unspecified; E78.00 Pure hypercholesterolemia, unspecified; I10 Essential (primary) hypertension; W01.0XXA Fall on same level from slipping, tripping and stumbling without subsequent striking against object, initial encounter; Y93.89 Activity, other specified; Y92.89 Other specified places as the place of occurrence of the external cause; Y99.8 Other external cause status
CPT/HCPCS: 73630; 99283